=== PATIENT | male | born 1940 | race Caucasian/White ===

== ENCOUNTER 2019-05-07 06:49 | Inpatient (IN) | payer OTHER ==
[2019-05-07 07:21] LABS: #Monocytes 0.4 thou/uL (0.11-0.59); #Neutrophils 6.6 thou/uL (1.40-6.50); %Eosinophils 0.4 % (0.0-10.0); %Lymphocytes 12.8 % (21.0-51.0); %Neutrophils 81.9 % (42.0-75.0); Hemoglobin 8.3 g/dL (14.0-18.0); Mean Corpuscular HGB CONC 30.9 g/dL (32.0-36.0); Mean Corpuscular Hemoglobin 27.5 pg (27.0-31.0); Mean Platelet Volume 9.3 fL (7.4-10.4); Platelet Count 165 thou/uL (130-400); RBC Distribution Width 18.9 % (11.5-14.5); Red Blood Cell (RBC) Count 3.04 mill/uL (4.70-6.10); White Blood Cell (WBC) Count 8.1 thou/uL (4.8-10.8)
[2019-05-07 07:45] LABS: ALT (SGPT) 9 U/L (8-55); AST (SGOT) 15 U/L (5-34); Albumin 2.8 g/dL (3.4-4.8); Alkaline Phosphatase 104 U/L (40-150); Anion Gap 11 mmol/L (10-20); BUN (Urea Nitrogen) 18 mg/dL (8.4-25.7); Bilirubin, Total 1.7 mg/dL (0.2-1.2); Calc. Creatinine Clearance 0 mL/min (70-130); Calcium 8.9 mg/dL (7.8-10.44); Carbon Dioxide 22 mmol/L (23-31); Chloride 107 mmol/L (98-107); Estimated GFR-MDRD 59; Globulin 4.5 g/dL (2.4-3.5); Glucose 112 mg/dL (83-110); Potassium 3.3 mmol/L (3.5-5.1); Protein, Total 7.3 g/dL (5.8-8.1); Sodium 137 mmol/L (136-145)
[2019-05-07 08:07] LABS: CKMB 0.8 ng/mL (0-6.6)
--- NOTE | 2019-05-07 08:20 | RAD ---
EXAM: Single view of the chest HISTORY: Chest pain COMPARISON: None FINDINGS: Single view of the chest shows an enlarged cardiomediastinal silhouette. A pacemaker is se en with its tip in the right ventricle. There is no evidence of consolidation, mass, or pleural effusion. The bones are unremarkable. IMPRESSION: Cardiomegaly
--- NOTE | 2019-05-07 09:51 | CT ---
EXAM: CTA of the chest and abdomen HISTORY: Chest pain and back pain; shortness of breath COMPARISON: None TECHNIQUE: Multiple contiguous axial images were obtained a CTA of the chest and abdomen with contras t per aortic dissection protocol. Sagittal and coronal 3-D MIP reformats were performed. FINDINGS: HEART: Global cardiomegaly. A pacemaker is seen with its tip in the right ventricle. A small pericard ial effusion is seen. Calcification are seen in the coronary arteries. PULMONARY ARTERIES: Normal in caliber without filling defects to suggest pulmonary emboli. MEDIASTINUM: There are prominent mediastinal lymph nodes measuring up to 1.4 cm in short axis. LUNGS: No focal infiltrates or masses. PLEURAL SPACE: Small bilateral pleural effusions with adjacent atelectasis CHEST AND ABDOMINAL WALL SOFT TISSUES: Diffuse soft tissue anasarca. LIVER: Slightly nodular appearance concerning for cirrhosis.. GALLBLADDER: Absent. KIDNEYS: Small and atrophic. Subcentimeter hypodensities likely represent cysts. There are nonobstruc ting calcifications in both kidneys measuring up to 1.2 cm in size. SPLEEN: There is a 6.3 cm cystic lesion involving the anterior aspect of the spleen. The spleen measu res 14.0 cm in length. PANCREAS: Unremarkable. BOWEL: Unremarkable. RETROPERITONEUM: No lymphadenopathy BONES: Degenerative changes in the spine. Remodeling of the left iliac crest may represent a remote h ealed fracture. ASCENDING THORACIC AORTA:Normal caliber without evidence of dissection or aneurysmal dilatation. DESCENDING THORACIC AORTA:Normal caliber without evidence of dissection or aneurysmal dilatation. ABDOMINAL AORTA: Normal caliber without evidence of dissection or aneurysmal dilatation. Atherosclero tic calcifications are seen more prominently in the infrarenal aorta. CELIAC TRUNK: Patent SMA: Patent ROBBY: Patent RENAL ARTERIES: Single renal artery on the left and 2 renal arteries on the right without significant atherosclerotic disease. IMPRESSION: 1. No evidence of thoracic or abdominal aortic aneurysm or dissection 2. Likely cirrhosis with splenomegaly 3. Nonobstructing bilateral renal calculi 4. Nonspecific cystic lesion in the anterior aspect of the spleen. This may represent residual sequel ae from trauma. 5. Bilateral renal cysts 6. Bilateral pleural effusions 7. Small pericardial effusion
[2019-05-07 10:59] LABS: Troponin I 0.042 ng/mL (< 0.028)
[2019-05-07] MEDS ORDERED: Prevnar 13-Val Conj/PF 0.5 ML SYRINGE IM ONE (13:15)
[2019-05-07 14:24] LABS: Troponin I 0.033 ng/mL (< 0.028)
[2019-05-07] MEDS ORDERED: Senokot S 8.6-50 MG TAB PO PRN (14:37)
[2019-05-07] MEDS ORDERED: Bisacodyl 10 MG SUPP PR PRN (14:37)
[2019-05-07] MEDS ORDERED: Guaifenesin DM 100-10/5 ML UDCUP PO PRN (14:37)
[2019-05-07] MEDS ORDERED: Acetaminophen 325 MG TAB PO PRN (14:37)
[2019-05-07] MEDS ORDERED: Heparin 1,000 UNITS/ML VIAL ONE (15:00)
[2019-05-07 16:23] LABS: INR-International Normal Ratio 1.4; PTT 38.6 SEC (22.9-36.1); Prothrombin Time 17.1 SEC (12.0-14.7)
[2019-05-07 16:25] LABS: Hep C IgG Ab Non-Reactive (NonReactive); Hep C Index 0.13 S/CO (0-0.79)
[2019-05-07 16:27] LABS: HBCM Index 0.12 S/CO (0-0.79); Hepatitis B Core IgM Abs Non-Reactive (NonReactive)
[2019-05-07 16:28] LABS: HBSAg Index 0.33 S/CO (0-0.99); Hep A IgM AB Non-Reactive (NonReactive); Hep A IgM S/CO 0.19 S/CO (0-0.79); Hep B Surf Ag Non-Reactive S/CO (NonReactive)
--- NOTE | 2019-05-07 16:35 | HP ---
REASON FOR ADMISSION: Chest pain, CHF exacerbation, and hypokalemia. HISTORY OF PRESENTING ILLNESS: The patient gives history of shortness of breath from last 2 to 3 days now. He has been getting exhausted walking 100 feet. He thinks that he might have vascular issues in his lower extremities. The patient says he has to rest for a few minutes before he starts ambulating. He also developed chest pain this morning, which lasted for 15 minutes and got resolved by itself. He was taken to the [facility] in the [facility] unit and later transferred here. The patient also received sublingual nitroglycerin. He states he has chronic cough with yanet-colored sputum, which is not something new. No complaints of fever. No complaints of palpitations or PND. PAST MEDICAL AND SURGICAL HISTORY: History of paroxysmal atrial fibrillation and the patient has chosen not to take anticoagulation, hypertension, chronic venous insufficiency per fpc records. No prior history of heart failure. Cataract surgery, pacemaker placed in 2014. He has had a stress test done sometime in 2014, which was negative as far as he knows. Heavy use of alcohol for nearly 50 years with likely history of cirrhosis. CURRENT MEDICATIONS: The patient takes: 1. Aspirin 81 mg p.o. daily. 2. Atorvastatin 80 mg p.o. at bedtime. 3. Ferrous sulfate 325 mg p.o. daily. 4. Finasteride 5 mg p.o. daily. 5. Lactulose 30 g p.o. twice daily. 6. Omeprazole 20 mg daily. ALLERGIES: 1. BENZODIAZEPINES. 2. ONIONS. 3. PENICILLIN. PERSONAL HISTORY: The patient states he was drinking heavy alcohol from 13 years of age, and he used to drink nearly 1 pint of tequila for almost 50 years on a daily basis. He has been in the fpc system for the last 8-1/2 years. Does not abuse drugs or smoke. FAMILY HISTORY: The patient has 3 children, and they are not in talking terms. CODE STATUS: Full. Power of attorney general is his stepdaughter, Ms. Tiesha Nelson. REVIEW OF SYSTEMS: CONSTITUTIONAL: Negative for weight loss or gain, ability to conduct usual activities. SKIN: Negative for rash, itching. EYES: Negative for double vision, pain. ENT/MOUTH: Negative for nose bleeding, neck stiffness, pain, tenderness. CARDIOVASCULAR: Negative for palpitations, dyspnea on exertion, orthopnea. RESPIRATORY: Negative for shortness of breath, wheezing, cough, hemoptysis, fever or night sweats. GASTROINTESTINAL: Negative for poor appetite, abdominal pain, heartburn, nausea , vomiting, constipation, or diarrhea. GENITOURINARY: Negative for urgency, frequency, dysuria, nocturia. MUSCULOSKELETAL: Negative for pain, swelling. NEUROLOGIC/PSYCHIATRIC: Negative for anxiety, depression. ALLERGY/IMMUNOLOGIC: Negative for skin rash, bleeding tendency. PHYSICAL EXAMINATION: GENERAL: The patient is an 78-year-old male, who is currently not in any acute distress. VITAL SIGNS: Blood pressure 130/66, pulse 86 per minute, respiratory rate 18 per minute, temperature 98 degrees Fahrenheit, saturating 97% on room air. NECK: Supple. No elevated JVD. HEENT: Eyes; extraocular muscles are intact. Pupils are reacting to light. Oral cavity; mucous membranes are moist. No exudates or congestion. CARDIOVASCULAR: S1 and S2 heard. Regular rhythm. RESPIRATORY: Air entry 1+ bilateral. There are basal rales plus. ABDOMEN: Soft. Bowel sounds heard. No tenderness, rigidity, or guarding. EXTREMITIES: There is peripheral edema, 1+ bilateral. No calf tenderness. VASCULAR: Peripheral pulses 1+ bilateral. No ischemic ulcerations or gangrene. CENTRAL NERVOUS SYSTEM: No gross focal deficits noted. The patient is alert, awake, and oriented well. PSYCHIATRIC: The patient's mood is euthymic. No hallucinations or delusions. LABORATORY DATA: EKG done shows ventricular paced rhythm at 68 beats per minute , corrected QT is 572 milliseconds, QRS is [address] dissection protocol done shows no evidence of thoracic or abdominal aortic dissection or aneurysm seen. Findings of nodular liver with likely cirrhosis and splenomegaly with prior history of alcohol abuse. Nonobstructing bilateral renal calculi. Troponin I is indeterminate peaking up to 0.05, CK-MB 0.8. BNP 962. Albumin is 2.8, BUN 18, creatinine 1.1, serum glucose 112, total bilirubin 1.7, potassium 3.3, serum bicarb 22. D-dimer was 5.14. White count of 8, H and H 8 and 27, platelet count 165 with 81% neutrophils, MCV is 89. CLINICAL IMPRESSION AND PLAN: The patient will be under observation on telemetry for acute congestive heart failure exacerbation with volume overload. He also has [id number] myocardial infarction. He will be placed on Lasix 40 mg IV q.12 hourly. We will also continue his lactulose, small dose of lisinopril, and Coreg at 3.125 mg twice daily. Echo with 2D Doppler for LV function will be obtained. Stat PT/INR is still pending. He will be on aspirin, Lipitor, lactulose at home dose , and Proscar. A hepatitis panel will also be requested. If the patient were to become symptomatic with his chest pain, a stress test will be obtained, but until such time, he will be gently diuresed. If his shortness of breath resolves and he can ambulate well in the morning, the patient can be discharged back to fpc unit. If not, he will be switched over to inpatient status for further diuresis based on clinical findings in the morning. Job ID: [id number] MTDD
[2019-05-07] MEDS ORDERED: ISOVUE-370 76%-LOCM 1 ML ONE (17:11)
[2019-05-07] MEDS: Atorvastatin Calcium 40 MG TAB PO SCH (20:35)
[2019-05-07] MEDS: Famotidine 20 MG TAB PO SCH (20:35)
[2019-05-07] MEDS: Carvedilol 3.125 MG TAB PO SCH (20:35)
[2019-05-07] MEDS ORDERED: Gabapentin 300 MG CAP PO SCH (23:00)
[2019-05-08 05:52] LABS: Anion Gap 10 mmol/L (10-20); BUN (Urea Nitrogen) 19 mg/dL (8.4-25.7); Calc. Creatinine Clearance 68 mL/min (70-130); Calcium 8.3 mg/dL (7.8-10.44); Carbon Dioxide 21 mmol/L (23-31); Chloride 107 mmol/L (98-107); Estimated GFR-MDRD 73; Glucose 96 mg/dL (83-110); Potassium 3.2 mmol/L (3.5-5.1); Sodium 135 mmol/L (136-145)
[2019-05-08 05:59] LABS: #Eosinphils 0.1 thou/uL (0.0-0.7); #Monocytes 0.5 thou/uL (0.11-0.59); #Neutrophils 6.1 thou/uL (1.40-6.50); %Basophils 0.2 % (0.0-1.0); %Eosinophils 1.3 % (0.0-10.0); %Lymphocytes 13.2 % (21.0-51.0); %Monocytes 5.8 % (0.0-10.0); %Neutrophils 79.5 % (42.0-75.0); Band 9 % (5-11); Hemoglobin 7.5 g/dL (14.0-18.0); Hypochromia SLIGHT = 6-15 cells (100X) (0-5/hpf); Lymphocytes 11 % (21-51); MDiff Complete? YES; Macrocytosis SLIGHT = 6-15 cells (100X) (0-5/hpf); Mean Corpuscular Hemoglobin 28.4 pg (27.0-31.0); Mean Corpuscular Volume 88.7 fL (78.0-98.0); Mean Platelet Volume 9.3 fL (7.4-10.4); Monocytes 3 % (0-10); Neutrophil 77 % (42-75); Platelet Count 171 thou/uL (130-400); Platelet Morphology Comment Appears Adequate; RBC Distribution Width 19.2 % (11.5-14.5); Red Blood Cell (RBC) Count 2.63 mill/uL (4.70-6.10); White Blood Cell (WBC) Count 7.7 thou/uL (4.8-10.8)
[2019-05-08] MEDS: Furosemide 40 MG/4 ML VIAL SLOW IVP SCH ×2 (06:41→13:50)
[2019-05-08] MEDS: Potassium Chloride 20 MEQ TAB PO SCH ×2 (06:44→12:03)
[2019-05-08] MEDS: Gabapentin 300 MG CAP PO SCH ×2 (09:42→20:07)
[2019-05-08] MEDS: Lisinopril 2.5 MG TAB PO SCH (09:42)
[2019-05-08] MEDS: Finasteride 5 MG TAB PO SCH (09:42)
[2019-05-08] MEDS: Famotidine 20 MG TAB PO SCH ×2 (09:42→20:06)
[2019-05-08] MEDS: Carvedilol 3.125 MG TAB PO SCH ×2 (09:43→20:07)
[2019-05-08] MEDS: Enoxaparin Sodium 40 MG/0.4 ML SYRINGE SC SCH (09:43)
[2019-05-08] MEDS: Aspirin Chewable 81 MG TAB PO SCH (09:43)
--- NOTE | 2019-05-08 10:53 | PDOC.PN ---
- Subjective Encounter Start Date: 05/08/19 Encounter Start Time: 10:00 Subjective: feels better, no sob or palp -: has off and on chest dyscomfort which he cant describe well - Objective Resuscitation Status - Order Detail: 05/07/19 14:32 Resuscitation Status Routine Resuscitation Status: FULL: Full Resuscitation MAR Reviewed: Yes Vital Signs & Weight: Vital Signs (12 hours) Temp Pulse Resp BP BP BP Pulse Ox 05/08/19 09:42 63 110/56 L 05/08/19 07:27 98.1 F 63 12 110/56 L 96 05/08/19 05:00 97.5 F L 71 17 131/63 95 05/07/19 23:43 98.9 F 69 16 142/62 H 96 Weight Weight 179 lb I&O: 05/07/19 05/08/19 05/09/19 06:59 06:59 06:59 Intake Total 1440 240 Output Total 675 Balance 765 240 Result Diagrams: 05/08/19 04:53 05/08/19 04:53 Phys Exam - Physical Examination HEENT: PERRLA, moist MMs Neck: no JVD, supple Respiratory: no wheezing rales+ Cardiovascular: RRR, no significant murmur Gastrointestinal: soft, non-tender, positive bowel sounds Musculoskeletal: pulses present, edema present Neurological: non-focal, moves all 4 limbs Psychiatric: A&O x 3 Dx/Plan (1) Acute exacerbation of CHF (congestive heart failure) Code(s): I50.9 - HEART FAILURE, UNSPECIFIED Status: Acute (2) Cirrhosis of liver Code(s): K74.60 - UNSPECIFIED CIRRHOSIS OF LIVER Status: Chronic Qualifiers: Hepatic cirrhosis type: alcoholic cirrhosis Ascites presence: without ascites Qualified Code(s): K70.30 - Alcoholic cirrhosis of liver without ascites (3) Anasarca Code(s): R60.1 - GENERALIZED EDEMA Status: Acute (4) HTN (hypertension) Code(s): I10 - ESSENTIAL (PRIMARY) HYPERTENSION Status: Chronic Qualifiers: Hypertension type: essential hypertension Qualified Code(s): I10 - Essential (primary) hypertension (5) Dyslipidemia Code(s): E78.5 - HYPERLIPIDEMIA, UNSPECIFIED Status: Chronic (6) Afib Code(s): I48.91 - UNSPECIFIED ATRIAL FIBRILLATION Status: Chronic Qualifiers: Atrial fibrillation type: paroxysmal Qualified Code(s): I48.0 - Paroxysmal atrial fibrillation Comment: in sinus rhythm, does not want anticoagulation (7) Pacemaker Code(s): Z95.0 - PRESENCE OF CARDIAC PACEMAKER Status: Chronic (8) Chronic anemia Code(s): D64.9 - ANEMIA, UNSPECIFIED Status: Chronic (9) Chest pain Code(s): R07.9 - CHEST PAIN, UNSPECIFIED Status: Acute Qualifiers: Chest pain type: unspecified Qualified Code(s): R07.9 - Chest pain, unspecified - Plan gentle diuresis -: await echo results -: is on coreg, lisinopril, asp, lipitor, proscar -: was initiated on gabapentin last night for possible neuropathy -: to wear mariana hose, switch to inpatient status * . Review of Systems - Medications/Allergies Allergies/Adverse Reactions: Allergies Allergy/AdvReac Type Severity Reaction Status Date / Time Benzodiazepines Allergy Verified 05/07/19 13:19 Medications: Current Medications Acetaminophen (Tylenol) 650 mg PO Q4H PRN PRN Reason: Headache/Fever/Mild Pain (1-3) Last Admin: 05/07/19 20:35 Dose: 650 mg Aspirin (Aspirin Chewable) 81 mg PO DAILY [facility] Last Admin: 05/08/19 09:43 Dose: 81 mg Atorvastatin Calcium (Lipitor) 80 mg PO HS [facility] Last Admin: 05/07/19 20:35 Dose: 80 mg Bisacodyl (Dulcolax) 10 mg OR DAILYPRN PRN PRN Reason: Constipation Carvedilol (Coreg) 3.125 mg PO BID [facility] Last Admin: 05/08/19 09:43 Dose: 3.125 mg Enoxaparin Sodium (Lovenox) 40 mg SC 0900 [facility] Last Admin: 05/08/19 09:43 Dose: 40 mg Famotidine (Pepcid) 20 mg PO BID [facility] Last Admin: 05/08/19 09:42 Dose: 20 mg Finasteride (Proscar) 5 mg PO DAILY [facility] Last Admin: 05/08/19 09:42 Dose: 5 mg Furosemide (Lasix) 40 mg SLOW IVP 0600,1400 [facility] Last Admin: 05/08/19 06:41 Dose: 40 mg Gabapentin (Neurontin) 300 mg PO BID [facility] Last Admin: 05/08/19 09:42 Dose: 300 mg Guaifenesin/Dextromethorphan (Robitussin Dm) 15 ml PO Q4H PRN PRN Reason: Cough Lactulose (Lactulose) 30 gm PO BID [facility] Last Admin: 05/08/19 09:42 Dose: Not Given Lisinopril (Zestril) 2.5 mg PO DAILY [facility] Last Admin: 05/08/19 09:42 Dose: 2.5 mg Potassium Chloride (K-Dur) 40 meq PO 0700,1200 [facility] Stop: 05/08/19 13:00 Last Admin: 05/08/19 06:44 Dose: 40 meq Senna/Docusate Sodium (Senokot S) 2 tab PO BID PRN PRN Reason: Constipation
[2019-05-08 15:29] LABS: Hemoglobin 7.9 g/dL (14.0-18.0)
[2019-05-08] MEDS: Atorvastatin Calcium 40 MG TAB PO SCH (20:07)
[2019-05-09] MEDS: Furosemide 40 MG/4 ML VIAL SLOW IVP SCH ×2 (06:09→14:26)
[2019-05-09] MEDS: Finasteride 5 MG TAB PO SCH (08:46)
[2019-05-09] MEDS: Lisinopril 2.5 MG TAB PO SCH (08:46)
[2019-05-09] MEDS: Famotidine 20 MG TAB PO SCH ×2 (08:46→20:16)
[2019-05-09] MEDS: Aspirin Chewable 81 MG TAB PO SCH (08:47)
[2019-05-09] MEDS: Gabapentin 300 MG CAP PO SCH ×2 (08:47→20:16)
[2019-05-09] MEDS: Carvedilol 3.125 MG TAB PO SCH ×2 (08:47→20:16)
[2019-05-09] MEDS: Enoxaparin Sodium 40 MG/0.4 ML SYRINGE SC SCH (08:48)
--- NOTE | 2019-05-09 14:37 | PDOC.PN ---
- Subjective Encounter Start Date: 05/09/19 Encounter Start Time: 07:40 Pt seen for followup re: CHF exacerbation. Says he feels better. - Objective Resuscitation Status - Order Detail: 05/07/19 14:32 Resuscitation Status Routine Resuscitation Status: FULL: Full Resuscitation MAR Reviewed: Yes Vital Signs & Weight: Vital Signs (12 hours) Temp Pulse Resp BP Pulse Ox 05/09/19 11:00 98.1 F 75 18 96/53 L 97 05/09/19 08:46 65 05/09/19 08:00 92 L 05/09/19 07:00 97.6 F 65 18 112/73 93 L 05/09/19 03:36 98.0 F 62 19 105/62 95 Weight Admit Weight 181 lb 8 oz Weight 167 lb 14.4 oz I&O: 05/08/19 05/09/19 05/10/19 06:59 06:59 06:59 Intake Total 1440 780 540 Output Total 675 Balance 765 780 540 Result Diagrams: 05/08/19 15:14 05/08/19 04:53 EKG Reviewed by me: Yes (Tele: V-paced) Phys Exam - Physical Examination Constitutional: NAD HEENT: moist MMs Neck: supple Respiratory: clear to auscultation bilateral Cardiovascular: RRR Gastrointestinal: soft Neurological: moves all 4 limbs Psychiatric: normal affect Dx/Plan (1) Acute on chronic diastolic CHF (congestive heart failure), NYHA class 3 Code(s): I50.33 - ACUTE ON CHRONIC DIASTOLIC (CONGESTIVE) HEART FAILURE Status : Acute Comment: continue furosemide, improving (2) Vegetation of heart valve Code(s): I33.0 - ACUTE AND SUBACUTE INFECTIVE ENDOCARDITIS Status: Acute Comment: send blood cultures, consult cardiology for opinion and help with management. Pt is afebrile. (3) Afib Code(s): I48.91 - UNSPECIFIED ATRIAL FIBRILLATION Status: Chronic Qualifiers: Atrial fibrillation type: paroxysmal Qualified Code(s): I48.0 - Paroxysmal atrial fibrillation Comment: s/p PPM, does not want anticoagulation (4) Cirrhosis of liver Code(s): K74.60 - UNSPECIFIED CIRRHOSIS OF LIVER Status: Chronic Qualifiers: Hepatic cirrhosis type: alcoholic cirrhosis Ascites presence: without ascites Qualified Code(s): K70.30 - Alcoholic cirrhosis of liver without ascites Comment: stable (5) Dyslipidemia Code(s): E78.5 - HYPERLIPIDEMIA, UNSPECIFIED Status: Chronic Comment: continue Lipitor 80 mg (6) HTN (hypertension) Code(s): I10 - ESSENTIAL (PRIMARY) HYPERTENSION Status: Chronic Qualifiers: Hypertension type: essential hypertension Qualified Code(s): I10 - Essential (primary) hypertension Comment: controlled - Plan * . Review of Systems - Review of Systems Cardiovascular: negative: chest pain, palpitations, orthopnea, paroxysmal nocturnal dyspnea, edema, light headedness Gastrointestinal: negative: Nausea, Vomiting, Abdominal Pain, Diarrhea, Constipation, Melena, Hematochezia - Medications/Allergies Allergies/Adverse Reactions: Allergies Allergy/AdvReac Type Severity Reaction Status Date / Time Benzodiazepines Allergy Verified 05/07/19 13:19 Medications: Current Medications Acetaminophen (Tylenol) 650 mg PO Q4H PRN PRN Reason: Headache/Fever/Mild Pain (1-3) Last Admin: 05/07/19 20:35 Dose: 650 mg Aspirin (Aspirin Chewable) 81 mg PO DAILY [facility] Last Admin: 05/09/19 08:47 Dose: 81 mg Atorvastatin Calcium (Lipitor) 80 mg PO HS [facility] Last Admin: 05/08/19 20:07 Dose: 80 mg Bisacodyl (Dulcolax) 10 mg IN DAILYPRN PRN PRN Reason: Constipation Carvedilol (Coreg) 3.125 mg PO BID [facility] Last Admin: 05/09/19 08:47 Dose: 3.125 mg Enoxaparin Sodium (Lovenox) 40 mg SC 0900 [facility] Last Admin: 05/09/19 08:48 Dose: Not Given Famotidine (Pepcid) 20 mg PO BID [facility] Last Admin: 05/09/19 08:46 Dose: 20 mg Finasteride (Proscar) 5 mg PO DAILY [facility] Last Admin: 05/09/19 08:46 Dose: 5 mg Furosemide (Lasix) 40 mg SLOW IVP 0600,1400 [facility] Last Admin: 05/09/19 14:26 Dose: 40 mg Gabapentin (Neurontin) 300 mg PO BID [facility] Last Admin: 05/09/19 08:47 Dose: 300 mg Guaifenesin/Dextromethorphan (Robitussin Dm) 15 ml PO Q4H PRN PRN Reason: Cough Lactulose (Lactulose) 30 gm PO BID [facility] Last Admin: 05/09/19 08:46 Dose: Not Given Lisinopril (Zestril) 2.5 mg PO DAILY [facility] Last Admin: 05/09/19 08:46 Dose: 2.5 mg Senna/Docusate Sodium (Senokot S) 2 tab PO BID PRN PRN Reason: Constipation
--- NOTE | 2019-05-09 16:32 | CON ---
DATE OF CONSULTATION: HISTORY OF PRESENT ILLNESS: The patient is an 78-year-old gentleman with a history of atrial fibrillation and pacemaker, who presented with chest discomfort. The patient has a history of chronic atrial fibrillation. He has declined chronic anticoagulation therapy. He also has had placement of electronic pacemaker. The patient has declined to have followup in [place]. He presented to the emergency room with dyspnea. He also reported having pain along the site of his pacemaker. He states it was seemed to be worse when he took a deep breath. The patient denies having any chest discomfort. PAST MEDICAL HISTORY: 1. Atrial fibrillation. 2. Hypertension. 3. Cirrhosis. 4. Dyslipidemia. PAST SURGICAL HISTORY: Cataract surgery. SOCIAL HISTORY: Nonsmoker. MEDICATIONS: See nursing list. ALLERGIES: PENICILLIN AND BENZODIAZEPINE. SOCIAL HISTORY: Long history of alcohol abuse. REVIEW OF SYSTEMS: Ten-point system otherwise unremarkable. PHYSICAL EXAMINATION: GENERAL: Well-developed gentleman in no acute distress. VITAL SIGNS: Blood pressure 112/73. NECK: No jugular venous distention. LUNGS: Clear to auscultation. HEART: Regular rate and rhythm. Normal S1, S2. 2/6 systolic murmur and 2/ 6diastolic murmur. ABDOMEN: Nondistended. EXTREMITIES: Showed mild peripheral edema. VASCULAR: Radial pulses, 2+. LABORATORY DATA: Sodium 135, potassium 3.2, chloride 107, bicarbonate 21, BUN 19, and creatinine 0.99. Troponin was 0.033. White blood cell count 7.7, hemoglobin 7.5, hematocrit 23.3, and platelets were 171. His INR was 1.4. His BNP was 96 due to troponin of 0.03. His EKG revealed ventricular paced rhythm. His echocardiogram revealed him to have normal left ventricular ejection fraction of 55% to 60% with a possible vegetation noted on the aortic valve with pulmonary hypertension. IMPRESSION: 1. Atypical chest pain. 2. History of atrial fibrillation. 3. Cirrhosis. 4. Pulmonary hypertension. 5. History of pacemaker placement. 6. Possible vegetation. PLAN: This gentleman presents with atypical chest pain, suggestive of musculoskeletal discomfort. He was found to have abnormality on his echocardiogram. We will proceed with [facility]I to further evaluate. We will follow this patient with you through his hospitalization. Job ID: [id number] [facility]
[2019-05-09] MEDS: Atorvastatin Calcium 40 MG TAB PO SCH (20:16)
[2019-05-10] MEDS: Furosemide 40 MG/4 ML VIAL SLOW IVP SCH ×2 (05:41→14:03)
[2019-05-10] MEDS ORDERED: PROPOFOL 20 ML ONE (07:59)
[2019-05-10] MEDS: Famotidine 20 MG TAB PO SCH ×2 (09:37→20:28)
[2019-05-10] MEDS: Gabapentin 300 MG CAP PO SCH ×2 (09:37→20:28)
[2019-05-10] MEDS: Finasteride 5 MG TAB PO SCH (09:39)
[2019-05-10] MEDS: Lisinopril 2.5 MG TAB PO SCH (09:40)
[2019-05-10] MEDS: Aspirin Chewable 81 MG TAB PO SCH (09:41)
[2019-05-10] MEDS: Enoxaparin Sodium 40 MG/0.4 ML SYRINGE SC SCH (09:41)
[2019-05-10] MEDS: Carvedilol 3.125 MG TAB PO SCH ×2 (09:41→20:29)
[2019-05-10 12:06] LABS: #Basophils 0.2 thou/uL (0.0-0.2); #Eosinphils 0.1 thou/uL (0.0-0.7); #Lymphocytes 1.3 thou/uL (1.20-3.40); #Monocytes 0.6 thou/uL (0.11-0.59); #Neutrophils 7.2 thou/uL (1.40-6.50); %Basophils 1.8 % (0.0-1.0); %Eosinophils 1.1 % (0.0-10.0); %Lymphocytes 14.1 % (21.0-51.0); %Monocytes 6.7 % (0.0-10.0); %Neutrophils 76.4 % (42.0-75.0); Hemoglobin 8.3 g/dL (14.0-18.0); Mean Corpuscular HGB CONC 30.4 g/dL (32.0-36.0); Mean Corpuscular Hemoglobin 27.6 pg (27.0-31.0); Mean Corpuscular Volume 90.8 fL (78.0-98.0); Mean Platelet Volume 9.2 fL (7.4-10.4); Platelet Count 187 thou/uL (130-400); RBC Distribution Width 20.2 % (11.5-14.5); Red Blood Cell (RBC) Count 3.01 mill/uL (4.70-6.10); White Blood Cell (WBC) Count 9.4 thou/uL (4.8-10.8)
--- NOTE | 2019-05-10 12:13 | OP ---
DATE OF PROCEDURE: 05/10/2019 PROCEDURE PERFORMED: Transesophageal echo. INDICATIONS FOR PROCEDURE: An 78-year-old gentleman with possible endocarditis. The patient was taken to the PACU. The patient was sedated by Anesthesiology. A transesophageal probe was placed into the distal esophagus and stomach, echocardiograms were obtained. FINDINGS: 1. Normal left ventricular systolic function. 2. Biatrial enlargement. 3. The aortic valve leaflets are thickened with a 0.5 cm mass noted attached to the aortic leaflet suggestive of vegetation. 4. Severe aortic regurgitation. 5. Mild mitral regurgitation. 6. Pacemaker wires noted in the right ventricle. 7. Spontaneous contrast noted in the left atrial and right atrial appendage. 8. Atherosclerotic debris in the descending aorta. IMPRESSION: Echogenic mass noted attached to the aortic valve leaflets suggestive of vegetation with severe aortic regurgitation. Job ID: [id number]
[2019-05-10 12:27] LABS: Anion Gap 11 mmol/L (10-20); BUN (Urea Nitrogen) 30 mg/dL (8.4-25.7); Calc. Creatinine Clearance 51 mL/min (70-130); Calcium 8.8 mg/dL (7.8-10.44); Carbon Dioxide 23 mmol/L (23-31); Chloride 103 mmol/L (98-107); Estimated GFR-MDRD 56; Glucose 101 mg/dL (83-110); Potassium 3.9 mmol/L (3.5-5.1); Sodium 133 mmol/L (136-145)
[2019-05-10] MEDS ORDERED: Vancomycin HCl 1.5 GM in Sodium Chloride 0.9% 250 ML 300 ML IVPB SCH (13:45)
[2019-05-10] MEDS ORDERED: Piperacillin/Tazobactam 4.5 GM in Sodium Chloride 0.9% 100 ML IVPB SCH (14:00)
[2019-05-10] MEDS ORDERED: PROPOFOL 200 MG/20 ML VIAL ONE (14:26)
--- NOTE | 2019-05-10 15:49 | PDOC.PN ---
- Subjective Encounter Start Date: 05/10/19 Encounter Start Time: 15:48 Pt seen for followup re: infective endocarditis. denies chest pain, shortness of breath is better. No nausea or vomiting. No fevers or chills. - Objective Resuscitation Status - Order Detail: 05/07/19 14:32 Resuscitation Status Routine Resuscitation Status: FULL: Full Resuscitation MAR Reviewed: Yes Vital Signs & Weight: Vital Signs (12 hours) Temp Pulse Pulse Pulse Resp BP BP 05/10/19 12:00 98.4 F 81 16 05/10/19 10:58 81 60 99/55 L 05/10/19 09:40 77 99/51 L 05/10/19 08:00 98.4 F 77 18 05/10/19 04:00 97.9 F 80 20 BP BP Pulse Ox 05/10/19 12:00 91/53 L 93 L 05/10/19 10:58 104/53 L 05/10/19 09:40 05/10/19 08:00 99/51 L 95 05/10/19 04:00 94/53 L 92 L Weight Admit Weight 181 lb 8 oz Weight 167 lb I&O: 05/09/19 05/10/19 05/11/19 06:59 06:59 06:59 Intake Total 780 1400 440 Output Total 600 Balance 780 800 440 Result Diagrams: 05/10/19 11:50 05/10/19 11:50 EKG Reviewed by me: Yes (Tele: V-paced) Phys Exam - Physical Examination Constitutional: NAD HEENT: moist MMs Neck: supple Respiratory: clear to auscultation bilateral Cardiovascular: RRR Gastrointestinal: soft Neurological: moves all 4 limbs Psychiatric: normal affect Dx/Plan (1) Infective endocarditis Code(s): I33.0 - ACUTE AND SUBACUTE INFECTIVE ENDOCARDITIS Status: Acute Qualifiers: Infective endocarditis organism: bacterial Comment: Blood cultures growing enterococcus fecalis and gram positive cocci, start IV vancomycin and Zosyn, await cultures. (2) Acute on chronic diastolic CHF (congestive heart failure), NYHA class 3 Code(s): I50.33 - ACUTE ON CHRONIC DIASTOLIC (CONGESTIVE) HEART FAILURE Status : Acute Comment: improving, continue furosemide (3) Afib Code(s): I48.91 - UNSPECIFIED ATRIAL FIBRILLATION Status: Chronic Qualifiers: Atrial fibrillation type: paroxysmal Qualified Code(s): I48.0 - Paroxysmal atrial fibrillation Comment: Pt has pacemaker. Continue Coreg 3.125 mg PO BID. (4) Cirrhosis of liver Code(s): K74.60 - UNSPECIFIED CIRRHOSIS OF LIVER Status: Chronic Qualifiers: Hepatic cirrhosis type: alcoholic cirrhosis Ascites presence: without ascites Qualified Code(s): K70.30 - Alcoholic cirrhosis of liver without ascites Comment: stable (5) Dyslipidemia Code(s): E78.5 - HYPERLIPIDEMIA, UNSPECIFIED Status: Chronic Comment: on Lipitor 80 mg (6) HTN (hypertension) Code(s): I10 - ESSENTIAL (PRIMARY) HYPERTENSION Status: Chronic Qualifiers: Hypertension type: essential hypertension Qualified Code(s): I10 - Essential (primary) hypertension Comment: controlled - Plan * . Review of Systems - Review of Systems Respiratory: SOB with Excertion. negative: Cough, Shortness of Breath, Pleuritic Pain, Wheezing Cardiovascular: negative: chest pain, palpitations, orthopnea, paroxysmal nocturnal dyspnea, edema, light headedness - Medications/Allergies Allergies/Adverse Reactions: Allergies Allergy/AdvReac Type Severity Reaction Status Date / Time Benzodiazepines Allergy Verified 05/07/19 13:19 Medications: Current Medications Acetaminophen (Tylenol) 650 mg PO Q4H PRN PRN Reason: Headache/Fever/Mild Pain (1-3) Last Admin: 05/07/19 20:35 Dose: 650 mg Aspirin (Aspirin Chewable) 81 mg PO DAILY [facility] Last Admin: 05/10/19 09:41 Dose: 81 mg Atorvastatin Calcium (Lipitor) 80 mg PO HS [facility] Last Admin: 05/09/19 20:16 Dose: 80 mg Bisacodyl (Dulcolax) 10 mg [place] DAILYPRN PRN PRN Reason: Constipation Carvedilol (Coreg) 3.125 mg PO BID [facility] Last Admin: 05/10/19 09:41 Dose: Not Given Enoxaparin Sodium (Lovenox) 40 mg SC 0900 [facility] Last Admin: 05/10/19 09:41 Dose: Not Given Famotidine (Pepcid) 20 mg PO BID [facility] Last Admin: 05/10/19 09:37 Dose: 20 mg Finasteride (Proscar) 5 mg PO DAILY [facility] Last Admin: 05/10/19 09:39 Dose: Not Given Furosemide (Lasix) 40 mg SLOW IVP 0600,1400 [facility] Last Admin: 05/10/19 14:03 Dose: Not Given Gabapentin (Neurontin) 300 mg PO BID [facility] Last Admin: 05/10/19 09:37 Dose: 300 mg Guaifenesin/Dextromethorphan (Robitussin Dm) 15 ml PO Q4H PRN PRN Reason: Cough Vancomycin HCl 1 gm/ Device 200 mls @ 200 mls/hr IVPB 0300,1500 [facility] Piperacillin Sod/Tazobactam (Sod 4.5 gm/ Sodium Chloride) 100 mls @ 200 mls/hr IVPB Q8HR [facility] Last Admin: 05/10/19 14:01 Dose: 100 mls Vancomycin HCl 1.5 gm/ Sodium (Chloride) 300 mls @ 200 mls/hr IVPB 1345 [facility] Stop: 05/10/19 16:30 Last Admin: 05/10/19 15:00 Dose: 300 mls Lactulose (Lactulose) 30 gm PO BID [facility] Last Admin: 05/10/19 09:40 Dose: Not Given Lisinopril (Zestril) 2.5 mg PO DAILY [facility] Last Admin: 05/10/19 09:40 Dose: Not Given Miscellaneous Medication (Pharmacy To Dose) 1 each IVPB PRN PRN PRN Reason: Pharmacy to dose Senna/Docusate Sodium (Senokot S) 2 tab PO BID PRN PRN Reason: Constipation
[2019-05-10] MEDS: Atorvastatin Calcium 40 MG TAB PO SCH (20:28)
[2019-05-10] MEDS: Ampicillin 2 GM in Sodium Chloride 0.9% 100 ML IVPB SCH (20:29)
[2019-05-10] MEDS: Gentamicin Sulfate 80 MG in Premix Bag 1 BAG IVPB SCH (21:56)
[2019-05-10] MEDS ORDERED: Gentamicin 80 MG/2 ML VIAL IM SCH (22:00)
--- NOTE | 2019-05-11 00:26 | CON ---
DATE OF CONSULTATION: 05/10/2019 REASON FOR CONSULTATION: Endocarditis. HISTORY OF PRESENT ILLNESS: An 78-year-old with history of atrial fibrillation, heart failure, and looks like the patient has an AICD in place since 2014 and possible liver cirrhosis from alcoholism in the past, who is an inmate at a local [facility] unit and has developed progressively worsening dyspnea for the past few days. He also had some cough, but no reported fever. No neurological symptoms. No abdominal pain or diarrhea. No genitourinary symptoms. No joint symptoms. PAST MEDICAL HISTORY: Atrial fibrillation, hypertension, CHF, AICD placement, negative stress test, alcoholism. ALLERGIES: BENZODIAZEPINE, ONIONS, PENICILLIN. SOCIAL HISTORY: Inmate at [facility]. He used to drink a pint of Tequila daily for almost 50 years. FAMILY HISTORY: He is estranged from his family and again, he is incarcerated for the past 8 years and a half. PHYSICAL EXAMINATION: VITAL SIGNS: T-max has been normal throughout the hospital stay. BP 94/51, pulse 60, respirations 18, O2 saturation 99. SKIN: Not particularly remarkable. He has a peripheral IV access and is voiding in the urinal and diaper. GENERAL: He seems to sleep most of the day, but he is easily arousable. NECK: There is no lymphadenopathy. HEENT: Ocular movements conjugate. Oral cavity is somewhat dry. Teeth in bad shape with a lot of periodontitis and gum disease. Tongue papillae atrophy. NECK: Supple. No jugular venous distention or thyromegaly. LUNGS: Symmetric air entry. HEART: S1 and S2. Regular rate without obvious murmurs. ABDOMEN: Soft. Not distended or tender. No ascites. No bladder distention. EXTREMITIES: No joint inflammatory activity. Pulses 1+ in dorsalis pedis. NEUROLOGICAL: He is able to move extremities equally, although he is diffusely weak. He knows his name, knows where he is and follows commands. LABORATORY DATA: White cell count 8.1 and 9.4, hemoglobin is stable at 8.3, MCV 90, platelets 187, 76% neutrophils. INR 1.4 and a sodium 133, creatinine 1.24, albumin 2.8, bilirubin 1.7. Transaminases normal. Alkaline phosphatase normal. Serology was negative. Microbiology with Enterococcus faecalis, 2/2 sets of blood cultures. The patient had transesophageal echo showed thickened aortic valve leaflets, possible mass attached to one of the aortic valve leaflets, severe aortic regurg. Pacemaker wire seemed to be okay. Transthoracic with also the vegetation in the right coronary cusp of the aortic valve and moderate to severe aortic regurg. EF is 55% to 60%. Chest x-ray with enlarged cardiomediastinal silhouette. 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 DISCUSSION: The patient's endocarditis will be treated with antimicrobials through a PICC line. The combination of ampicillin or penicillin plus gentamicin is the standard of care combination. An alternate regimen includes a combination of Rocephin and ampicillin. As patients have failed this regimen in the past, I am going to start him on ampicillin and gentamicin particularly in view of the severe aortic insufficiency. Monitor closely his renal function. Treat for 6 weeks. If he starts developing renal insufficiency, then switch him to ampicillin and Rocephin. He may eventually require valve replacement, probably will. Complications such as embolism with strokes are a threat particularly in the first week or 2 of the therapy. Job ID: [id number] [facility]AMPUSAdrienne
[2019-05-11] MEDS: Ampicillin 2 GM in Sodium Chloride 0.9% 100 ML IVPB SCH ×5 (00:49→16:42)
[2019-05-11] MEDS ORDERED: Vancomycin HCl 1 GM in Premix Bag 1 BAG IVPB SCH (03:00)
[2019-05-11 04:40] LABS: #Eosinphils 0.2 thou/uL (0.0-0.7); #Lymphocytes 1.8 thou/uL (1.20-3.40); #Monocytes 0.7 thou/uL (0.11-0.59); #Neutrophils 6.9 thou/uL (1.40-6.50); %Basophils 0.1 % (0.0-1.0); %Eosinophils 2.6 % (0.0-10.0); %Lymphocytes 18.3 % (21.0-51.0); %Monocytes 7.3 % (0.0-10.0); %Neutrophils 71.7 % (42.0-75.0); Hemoglobin 7.6 g/dL (14.0-18.0); Mean Corpuscular HGB CONC 31.4 g/dL (32.0-36.0); Mean Corpuscular Hemoglobin 27.9 pg (27.0-31.0); Mean Corpuscular Volume 88.7 fL (78.0-98.0); Mean Platelet Volume 9.4 fL (7.4-10.4); Platelet Count 177 thou/uL (130-400); RBC Distribution Width 19.8 % (11.5-14.5); Red Blood Cell (RBC) Count 2.73 mill/uL (4.70-6.10); White Blood Cell (WBC) Count 9.7 thou/uL (4.8-10.8)
[2019-05-11 04:58] LABS: Anion Gap 9 mmol/L (10-20); BUN (Urea Nitrogen) 31 mg/dL (8.4-25.7); Calc. Creatinine Clearance 49 mL/min (70-130); Calcium 8.7 mg/dL (7.8-10.44); Carbon Dioxide 25 mmol/L (23-31); Chloride 105 mmol/L (98-107); Estimated GFR-MDRD 53; Glucose 102 mg/dL (83-110); Potassium 4.2 mmol/L (3.5-5.1); Sodium 135 mmol/L (136-145)
[2019-05-11] MEDS: Furosemide 40 MG/4 ML VIAL SLOW IVP SCH ×2 (05:38→16:37)
[2019-05-11] MEDS: Gentamicin Sulfate 80 MG in Premix Bag 1 BAG IVPB SCH (06:02)
[2019-05-11] MEDS: Carvedilol 3.125 MG TAB PO SCH (08:47)
[2019-05-11] MEDS: Famotidine 20 MG TAB PO SCH (08:47)
[2019-05-11] MEDS: Gabapentin 300 MG CAP PO SCH (08:47)
[2019-05-11] MEDS: Aspirin Chewable 81 MG TAB PO SCH (08:47)
[2019-05-11] MEDS: Lisinopril 2.5 MG TAB PO SCH (08:47)
[2019-05-11] MEDS: Finasteride 5 MG TAB PO SCH (08:47)
[2019-05-11] MEDS: Enoxaparin Sodium 40 MG/0.4 ML SYRINGE SC SCH (09:52)
[2019-05-11] MEDS ORDERED: Furosemide 20 MG/2 ML VIAL SLOW IVP SCH (16:45)
--- NOTE | 2019-05-11 17:09 | PDOC.PN ---
- Subjective Encounter Start Date: 05/11/19 Encounter Start Time: 10:00 Pt seen for followup re: infective endocarditis. Says he feels better. - Objective Resuscitation Status - Order Detail: 05/07/19 14:32 Resuscitation Status Routine Resuscitation Status: FULL: Full Resuscitation MAR Reviewed: Yes Vital Signs & Weight: Vital Signs (12 hours) Temp Pulse Pulse Pulse Resp BP BP 05/11/19 16:07 97.6 F 73 18 05/11/19 12:41 97.9 F 80 18 05/11/19 10:44 82 81 103/51 L 88/50 L 05/11/19 08:47 73 05/11/19 08:40 98.7 F 73 18 BP BP Pulse Ox 05/11/19 16:07 97/53 L 05/11/19 12:41 94/51 L 95 05/11/19 10:44 05/11/19 08:47 05/11/19 08:40 109/69 94 L Weight Admit Weight 181 lb 8 oz Weight 167 lb 12.8 oz I&O: 05/10/19 05/11/19 05/12/19 06:59 06:59 06:59 Intake Total 1400 680 Output Total 600 Balance 800 680 Result Diagrams: 05/11/19 04:21 05/11/19 04:21 EKG Reviewed by me: Yes (Tele: NSR) Phys Exam - Physical Examination Constitutional: NAD HEENT: moist MMs Neck: supple Librado crackles Cardiovascular: RRR Gastrointestinal: soft Neurological: moves all 4 limbs Psychiatric: normal affect Dx/Plan (1) Infective endocarditis Code(s): I33.0 - ACUTE AND SUBACUTE INFECTIVE ENDOCARDITIS Status: Acute Qualifiers: Infective endocarditis organism: bacterial Comment: Blood cultures growing enterococcus fecalis and gram positive cocci, pt has been switched to ampicillin and gentamicin. (2) Acute on chronic diastolic CHF (congestive heart failure), NYHA class 3 Code(s): I50.33 - ACUTE ON CHRONIC DIASTOLIC (CONGESTIVE) HEART FAILURE Status : Acute Comment: continue furosemide (3) Afib Code(s): I48.91 - UNSPECIFIED ATRIAL FIBRILLATION Status: Chronic Qualifiers: Atrial fibrillation type: paroxysmal Qualified Code(s): I48.0 - Paroxysmal atrial fibrillation Comment: Continue Coreg 3.125 mg PO BID. (4) Cirrhosis of liver Code(s): K74.60 - UNSPECIFIED CIRRHOSIS OF LIVER Status: Chronic Qualifiers: Hepatic cirrhosis type: alcoholic cirrhosis Ascites presence: without ascites Qualified Code(s): K70.30 - Alcoholic cirrhosis of liver without ascites Comment: stable (5) Dyslipidemia Code(s): E78.5 - HYPERLIPIDEMIA, UNSPECIFIED Status: Chronic Comment: continue Lipitor 80 mg (6) HTN (hypertension) Code(s): I10 - ESSENTIAL (PRIMARY) HYPERTENSION Status: Chronic Qualifiers: Hypertension type: essential hypertension Qualified Code(s): I10 - Essential (primary) hypertension Comment: controlled - Plan * . Review of Systems - Review of Systems Constitutional: weakness Cardiovascular: negative: chest pain, palpitations, orthopnea, paroxysmal nocturnal dyspnea, edema, light headedness - Medications/Allergies Allergies/Adverse Reactions: Allergies Allergy/AdvReac Type Severity Reaction Status Date / Time Benzodiazepines Allergy Verified 05/07/19 13:19 Medications: Current Medications Acetaminophen (Tylenol) 650 mg PO Q4H PRN PRN Reason: Headache/Fever/Mild Pain (1-3) Last Admin: 05/07/19 20:35 Dose: 650 mg Aspirin (Aspirin Chewable) 81 mg PO DAILY [facility] Last Admin: 05/11/19 08:47 Dose: 81 mg Atorvastatin Calcium (Lipitor) 80 mg PO HS [facility] Last Admin: 05/10/19 20:28 Dose: 80 mg Bisacodyl (Dulcolax) 10 mg [place] DAILYPRN PRN PRN Reason: Constipation Carvedilol (Coreg) 3.125 mg PO BID [facility] Last Admin: 05/11/19 08:47 Dose: 3.125 mg Enoxaparin Sodium (Lovenox) 40 mg SC 0900 [facility] Last Admin: 05/11/19 09:52 Dose: 40 mg Famotidine (Pepcid) 20 mg PO BID [facility] Last Admin: 05/11/19 08:47 Dose: 20 mg Finasteride (Proscar) 5 mg PO DAILY [facility] Last Admin: 05/11/19 08:47 Dose: 5 mg Furosemide (Lasix) 40 mg SLOW IVP 0600,1400 [facility] Last Admin: 05/11/19 16:37 Dose: Not Given Furosemide (Lasix) 20 mg SLOW IVP NOW [facility] Stop: 05/11/19 18:45 Last Admin: 05/11/19 16:42 Dose: 20 mg Gabapentin (Neurontin) 300 mg PO BID [facility] Last Admin: 05/11/19 08:47 Dose: 300 mg Guaifenesin/Dextromethorphan (Robitussin Dm) 15 ml PO Q4H PRN PRN Reason: Cough Ampicillin Sodium 2 gm/ Sodium (Chloride) 100 mls @ 200 mls/hr IVPB Q4HR [facility] Last Admin: 05/11/19 16:42 Dose: 100 mls Gentamicin Sulfate 80 mg/ (Device) 100 mls @ 200 mls/hr IVPB Q8HR [facility] Lactulose (Lactulose) 30 gm PO BID [facility] Last Admin: 05/11/19 08:50 Dose: Not Given Lisinopril (Zestril) 2.5 mg PO DAILY [facility] Last Admin: 05/11/19 08:47 Dose: 2.5 mg Miscellaneous Medication (Pharmacy To Dose) 1 each IVPB PRN PRN PRN Reason: ENDOCARDITIS Senna/Docusate Sodium (Senokot S) 2 tab PO BID PRN PRN Reason: Constipation
[2019-05-11] MEDS ORDERED: Gentamicin Sulfate 80 MG in Premix Bag 1 BAG IVPB SCH ×2 (18:00→22:00)
--- NOTE | 2019-05-11 18:05 | PRG ---
DATE OF SERVICE: 05/11/2019 SUBJECTIVE: Mr. Mckeon is still sleepy, but arousable. No shortness of breath or chest pain. No back pain. No abdominal pain or diarrhea. OBJECTIVE: VITAL SIGNS: Temperature 97.6, blood pressure normal, pulse 73, respirations 18. GENERAL: Appears in no distress. HEENT: Ocular movements conjugate. LUNGS: Symmetric. Clear breath sounds. HEART: S1 and S2. Regular rate. No S3 or S4. ABDOMEN: Soft, not distended or tender. LABORATORY DATA: White cell count 9.7, hemoglobin 7.6, platelets 177, normal differential. 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 Since the patient has AICD or pacemaker in place, the possibility of lead colonization is not completely ruled out. The transesophageal echocardiogram has a discriminating ability limited to 3 mm. Anything less than that was not going to be detected, so it is conceivable that he might have in addition to the valvular vegetation, colonization of the AICD. This was not demonstrated in the HERI scan, so I think we will recommend continuation of IV therapy for 6 weeks. The end date is calculated to be the end of May, and a PICC line will be placed. The treatment will continue to be ampicillin and gentamicin with gentamicin trough levels twice a week and metabolic panel three times a week. Job ID: [id number]
[2019-05-11] MEDS ORDERED: Ampicillin 2 GM VIAL ONE (23:48)
[2019-05-12] MEDS ORDERED: Ampicillin 2 GM VIAL ONE (04:14)
[2019-05-12] MEDS: Enoxaparin Sodium 40 MG/0.4 ML SYRINGE SC SCH (09:30)
[2019-05-12] MEDS: Ampicillin 2 GM in Sodium Chloride 0.9% 100 ML IVPB SCH ×6 (09:30→21:52)
[2019-05-12] MEDS: Finasteride 5 MG TAB PO SCH (09:31)
[2019-05-12] MEDS: Aspirin Chewable 81 MG TAB PO SCH (09:31)
[2019-05-12] MEDS: Gabapentin 300 MG CAP PO SCH ×3 (09:31→21:53)
[2019-05-12] MEDS: Famotidine 20 MG TAB PO SCH ×3 (09:31→21:53)
[2019-05-12] MEDS: Carvedilol 3.125 MG TAB PO SCH ×3 (10:21→21:53)
[2019-05-12] MEDS: Atorvastatin Calcium 40 MG TAB PO SCH ×2 (10:21→21:53)
[2019-05-12] MEDS: Lisinopril 2.5 MG TAB PO SCH (11:31)
--- NOTE | 2019-05-12 15:25 | PDOC.PN ---
- Subjective Encounter Start Date: 05/12/19 Encounter Start Time: 08:40 Pt seen for followup re: infective endocarditis. Feels better, no new complaints. - Objective Resuscitation Status - Order Detail: 05/07/19 14:32 Resuscitation Status Routine Resuscitation Status: FULL: Full Resuscitation MAR Reviewed: Yes Vital Signs & Weight: Vital Signs (12 hours) Temp Pulse Pulse Pulse Resp BP BP 05/12/19 11:40 97.6 F 71 18 05/12/19 11:31 69 05/12/19 11:06 73 71 121/60 113/57 L 05/12/19 07:35 97.6 F 69 18 BP Pulse Ox Pulse Ox 05/12/19 11:40 115/56 L 05/12/19 11:31 05/12/19 11:06 97 05/12/19 07:35 107/58 L 94 L Weight Admit Weight 181 lb 8 oz Weight 167 lb 12.8 oz I&O: 05/11/19 05/12/19 05/13/19 06:59 06:59 06:59 Intake Total 680 720 Output Total 400 Balance 680 320 Result Diagrams: 05/11/19 04:21 05/13/19 15:40 EKG Reviewed by me: Yes (Tele: NSR) Phys Exam - Physical Examination Constitutional: NAD HEENT: moist MMs Neck: supple Respiratory: clear to auscultation bilateral Cardiovascular: RRR Gastrointestinal: soft Neurological: moves all 4 limbs Psychiatric: normal affect Dx/Plan (1) Infective endocarditis Code(s): I33.0 - ACUTE AND SUBACUTE INFECTIVE ENDOCARDITIS Status: Acute Qualifiers: Infective endocarditis organism: bacterial Comment: Continue ampicillin and gentamicin. Pt to have PICC line. Will need IV antibiotics till the end of May. (2) Acute on chronic diastolic CHF (congestive heart failure), NYHA class 3 Code(s): I50.33 - ACUTE ON CHRONIC DIASTOLIC (CONGESTIVE) HEART FAILURE Status : Acute Comment: continue furosemide 40 mg PO daily (3) Afib Code(s): I48.91 - UNSPECIFIED ATRIAL FIBRILLATION Status: Chronic Qualifiers: Atrial fibrillation type: paroxysmal Qualified Code(s): I48.0 - Paroxysmal atrial fibrillation Comment: Continue Coreg 3.125 mg PO BID. (4) Cirrhosis of liver Code(s): K74.60 - UNSPECIFIED CIRRHOSIS OF LIVER Status: Chronic Qualifiers: Hepatic cirrhosis type: alcoholic cirrhosis Ascites presence: without ascites Qualified Code(s): K70.30 - Alcoholic cirrhosis of liver without ascites Comment: stable (5) Dyslipidemia Code(s): E78.5 - HYPERLIPIDEMIA, UNSPECIFIED Status: Chronic Comment: on Lipitor 80 mg (6) HTN (hypertension) Code(s): I10 - ESSENTIAL (PRIMARY) HYPERTENSION Status: Chronic Qualifiers: Hypertension type: essential hypertension Qualified Code(s): I10 - Essential (primary) hypertension Comment: controlled - Plan * . Review of Systems - Review of Systems Cardiovascular: negative: chest pain, palpitations, orthopnea, paroxysmal nocturnal dyspnea, edema, light headedness Gastrointestinal: negative: Nausea, Vomiting, Abdominal Pain, Diarrhea, Constipation, Melena, Hematochezia - Medications/Allergies Allergies/Adverse Reactions: Allergies Allergy/AdvReac Type Severity Reaction Status Date / Time Benzodiazepines Allergy Verified 05/07/19 13:19 Medications: Current Medications Acetaminophen (Tylenol) 650 mg PO Q4H PRN PRN Reason: Headache/Fever/Mild Pain (1-3) Last Admin: 05/07/19 20:35 Dose: 650 mg Aspirin (Aspirin Chewable) 81 mg PO DAILY [facility] Last Admin: 05/12/19 09:31 Dose: 81 mg Atorvastatin Calcium (Lipitor) 80 mg PO HS [facility] Last Admin: 05/12/19 10:21 Dose: Not Given Bisacodyl (Dulcolax) 10 mg [place] DAILYPRN PRN PRN Reason: Constipation Carvedilol (Coreg) 3.125 mg PO BID [facility] Last Admin: 05/12/19 11:31 Dose: 3.125 mg Enoxaparin Sodium (Lovenox) 40 mg SC 0900 [facility] Last Admin: 05/12/19 09:30 Dose: 40 mg Famotidine (Pepcid) 20 mg PO BID [facility] Last Admin: 05/12/19 10:21 Dose: Not Given Finasteride (Proscar) 5 mg PO DAILY [facility] Last Admin: 05/12/19 09:31 Dose: 5 mg Gabapentin (Neurontin) 300 mg PO BID [facility] Last Admin: 05/12/19 10:21 Dose: Not Given Guaifenesin/Dextromethorphan (Robitussin Dm) 15 ml PO Q4H PRN PRN Reason: Cough Ampicillin Sodium 2 gm/ Sodium (Chloride) 100 mls @ 200 mls/hr IVPB Q4HR [facility] Last Admin: 05/12/19 10:20 Dose: Not Given Gentamicin Sulfate 80 mg/ (Device) 100 mls @ 200 mls/hr IVPB Q8HR [facility] Lactulose (Lactulose) 30 gm PO BID [facility] Last Admin: 05/12/19 11:31 Dose: Not Given Lisinopril (Zestril) 2.5 mg PO DAILY [facility] Last Admin: 05/12/19 11:31 Dose: 2.5 mg Miscellaneous Medication (Pharmacy To Dose) 1 each IVPB PRN PRN PRN Reason: ENDOCARDITIS Senna/Docusate Sodium (Senokot S) 2 tab PO BID PRN PRN Reason: Constipation
--- NOTE | 2019-05-12 15:59 | SPC ---
Ultrasound and Fluoroscopic guided right upper extremity PICC placement HISTORY: Endocarditis. Patient needs long-term IV antibiotics. FINDINGS: Informed consent obtained prior to the procedure. An appropriate access site was determined with ultrasound guidance. The area was then meticulously pr epped and draped in usual sterile fashion. Skin overlying the right basilic vein anesthetized with 1% buffered lidocaine. Utilizing direct sonog raphic guidance, vascular access is obtained via the right basilic vein, and an 0.018in guidewire was advanced to the cavoatrial junction. Intravascular length is calculated at 39 cm, and the PICC is cut accordingly. Needle is removed and replaced with a peel-away sheath. The PICC was advanced over the wire. Wire and peel-away sheath were removed. The tip of the catheter overlies the SVC. The catheter was accessed and aspirated/flushed easily. Exposure data: 0 minutes of fluoroscopic time 85 mGy square centimeter FINDINGS: Technically successful placement of a 39 centimeter single lumen 5 Tamazight right upper extremity PICC line. IMPRESSION: Successful ultrasound guided placement of a right upper extremity PICC.
[2019-05-12] MEDS ORDERED: Gentamicin 80 MG/2 ML VIAL IM SCH (21:00)
[2019-05-13] MEDS: Ampicillin 2 GM in Sodium Chloride 0.9% 100 ML IVPB SCH ×6 (01:52→22:10)
[2019-05-13] MEDS: Aspirin Chewable 81 MG TAB PO SCH (08:18)
[2019-05-13] MEDS: Gabapentin 300 MG CAP PO SCH ×2 (08:18→22:09)
[2019-05-13] MEDS: Finasteride 5 MG TAB PO SCH (08:18)
[2019-05-13] MEDS: Lisinopril 2.5 MG TAB PO SCH (08:18)
[2019-05-13] MEDS: Carvedilol 3.125 MG TAB PO SCH ×2 (08:19→22:10)
[2019-05-13] MEDS: Famotidine 20 MG TAB PO SCH ×2 (08:19→22:09)
[2019-05-13] MEDS: Furosemide 40 MG TAB PO SCH (08:19)
[2019-05-13] MEDS: Enoxaparin Sodium 40 MG/0.4 ML SYRINGE SC SCH (08:21)
[2019-05-13 16:24] LABS: Anion Gap 10 mmol/L (10-20); BUN (Urea Nitrogen) 33 mg/dL (8.4-25.7); Calc. Creatinine Clearance 44 mL/min (70-130); Calcium 8.8 mg/dL (7.8-10.44); Carbon Dioxide 23 mmol/L (23-31); Chloride 107 mmol/L (98-107); Estimated GFR-MDRD 50; Glucose 89 mg/dL (83-110); Magnesium 2.2 mg/dL (1.6-2.6); Potassium 4.4 mmol/L (3.5-5.1); Sodium 136 mmol/L (136-145)
--- NOTE | 2019-05-13 16:34 | PRG ---
DATE OF SERVICE: 05/13/2019 SUBJECTIVE: Mr. Mckeon is alert. He denies any headaches. No back pain or shortness of breath or chest pain. No abdominal pain. No diarrhea. Voiding without difficulty. OBJECTIVE: VITAL SIGNS: T-max 98.4, blood pressure 120/60, pulse 64, respirations 18, O2 saturation 96%. GENERAL: Awake, alert, oriented, more alert than usual. Speech is normal. LUNGS: Clear. HEART: S1 and S2. Regular rate. ABDOMEN: Soft, not distended. EXTREMITIES: Moves all extremities equally. : No bladder distention. LABORATORY DATA: The white cell count 9.7, hemoglobin 7.6, platelets 177, and 71% neutrophils. The sodium 135. Last chem-7 is from 2 days ago; creatinine went up to 1.3. His last gentamicin trough is less than 0.5 today. Microbiology as noted before. 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 The plan is to continue ampicillin and gentamicin at the current doses for total of 6 weeks and end date will be at the end of May. PICC line is already in place. The gentamicin trough level target is less than 1 mcg/mL and the chem-7 should continue to be monitored 3 times a week. If the creatinine continues to increase, then we will have to switch him to a combination of ampicillin plus Rocephin instead. Job ID: [id number]
--- NOTE | 2019-05-13 19:54 | PRG ---
DATE OF SERVICE: 05/13/2019 SUBJECTIVE: An 78-year-old male admitted on the 07 of May with shortness of breath. His workup was consistent with endocarditis. He is currently on gentamicin and ampicillin. He denies any chest pain, shortness of breath, or palpitations. REVIEW OF SYSTEMS: All other review of systems was reviewed and was found negative. CURRENT MEDICATIONS: Reviewed. PHYSICAL EXAMINATION: VITAL SIGNS: Temperature 98, pulse rate of 64, respirations of 18, blood pressure 128/61 with O2 saturation 96% on room air, and weight of 160 pounds, on admission was 181 pounds. GENERAL: An 78-year-old male in no apparent distress. HEENT: Head, atraumatic and normocephalic. Sclerae anicteric. Moist mucous membranes. No oral lesion. NECK: Supple. No JVD appreciated. No carotid bruit. LUNGS: Clear to auscultation bilaterally. No wheezing, rales, or rhonchi. HEART: S1 and S2 present. Regular rate and rhythm. No rubs or gallops appreciated. No heaves or pulsation. ABDOMEN: Soft, nontender. Bowel sounds present. No rebound or guarding. EXTREMITIES: No edema or calf tenderness. NEUROLOGIC: Nonfocal. PSYCHIATRY: Normal affect. Alert, awake, and oriented x3. LABORATORY FINDINGS: Creatinine 1.38 with BUN 33, potassium 4.4, sodium 136. Hemoglobin 7.6, hematocrit 24.2, platelet 177. Potassium last week was 3.2. Troponin in the indeterminate range. Albumin 2.8. Gentamicin level was less than 0.5 on April,. Acute hepatitis profile was negative. Blood culture showed Enterococcus faecalis. Chest x-ray on admission was negative for infiltrate. It showed cardiomegaly. CT dissection protocol on admission showed bilateral pleural effusion. Echocardiogram showed left ventricular ejection fraction 55% to 60% with moderate mitral regurgitation, small vegetation noted on the right coronary cusp with moderate to severe aortic regurgitation, moderate tricuspid regurgitation, and severely elevated pulmonary artery pressure. INPATIENT PROCEDURES: On April,, the patient underwent transesophageal echocardiogram that showed thickening of the aortic valve leaflets with 0.5 cm mass suggestive of vegetation. Telemetry monitoring by my review showed sinus rhythm. Chest x-ray by my review as discussed above. IMPRESSION: 1. 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 2. Acute kidney injury on chronic kidney disease stage 2. 3. Acute on chronic diastolic heart failure. 4. Paroxysmal atrial fibrillation. 5. 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 6. Dyslipidemia. 7. Hypertension. 8. Severe aortic regurgitation. 9. Moderate protein-calorie malnutrition. 10. Mild mitral regurgitation. 11. Nonobstructing bilateral renal calculi. 12. History of pacemaker placement. 13. Penicillin allergy. 14. Hypokalemia. 15. Hyponatremia. 16. Type 2 myocardial infarction/demand ischemia. 17. Coagulopathy of unclear etiology. 18. Elevated D-dimer with negative CT angiogram of the chest. 19. Chronic anemia. PLAN: Gentamicin will be discontinued due to acute kidney injury. I discussed with Dr. Swan, who recommended ceftriaxone 2 g q.12 hourly. Ampicillin 2 g every 4 hourly will be continued. We will continue aspirin with beta blockers, statin. Continue oral Lasix. We will continue lactulose. DVT prophylaxis with Lovenox. Continue vital signs per protocol. DISPOSITION: Probably disposition to [facility] in 1 to 2 days once cleared by consultants. Plan was discussed with the patient, he stated understanding. A.m. labs will be ordered. Job ID: [id number]
[2019-05-13] MEDS: Atorvastatin Calcium 40 MG TAB PO SCH (22:09)
[2019-05-13] MEDS: cefTRIAXone\\ROCEPHIN 2 GM in Sodium Chloride 0.9% 100 ML IVPB SCH (22:11)
[2019-05-14] MEDS: Ampicillin 2 GM in Sodium Chloride 0.9% 100 ML IVPB SCH ×5 (02:29→16:18)
[2019-05-14 06:19] LABS: #Eosinphils 0.3 thou/uL (0.0-0.7); #Lymphocytes 1.7 thou/uL (1.20-3.40); #Monocytes 0.7 thou/uL (0.11-0.59); #Neutrophils 4.2 thou/uL (1.40-6.50); %Basophils 0.1 % (0.0-1.0); %Lymphocytes 24.8 % (21.0-51.0); %Monocytes 9.7 % (0.0-10.0); %Neutrophils 61.3 % (42.0-75.0); Hemoglobin 7.9 g/dL (14.0-18.0); Mean Corpuscular HGB CONC 30.7 g/dL (32.0-36.0); Mean Corpuscular Hemoglobin 27.5 pg (27.0-31.0); Mean Corpuscular Volume 89.5 fL (78.0-98.0); Mean Platelet Volume 8.8 fL (7.4-10.4); Platelet Count 236 thou/uL (130-400); RBC Distribution Width 19.7 % (11.5-14.5); Red Blood Cell (RBC) Count 2.86 mill/uL (4.70-6.10); White Blood Cell (WBC) Count 6.9 thou/uL (4.8-10.8)
[2019-05-14 06:43] LABS: ALT (SGPT) 22 U/L (8-55); AST (SGOT) 41 U/L (5-34); Albumin 2.6 g/dL (3.4-4.8); Alkaline Phosphatase 122 U/L (40-150); Anion Gap 11 mmol/L (10-20); BUN (Urea Nitrogen) 35 mg/dL (8.4-25.7); Bilirubin, Total 0.5 mg/dL (0.2-1.2); Calc. Creatinine Clearance 36 mL/min (70-130); Calcium 8.8 mg/dL (7.8-10.44); Carbon Dioxide 24 mmol/L (23-31); Chloride 107 mmol/L (98-107); Estimated GFR-MDRD 39; Globulin 4.7 g/dL (2.4-3.5); Glucose 91 mg/dL (83-110); Potassium 4.5 mmol/L (3.5-5.1); Protein, Total 7.3 g/dL (5.8-8.1); Sodium 137 mmol/L (136-145)
[2019-05-14] MEDS ORDERED: Pharmacy to Dose ALL ABX IVPB PRN (07:39)
[2019-05-14] MEDS: Carvedilol 3.125 MG TAB PO SCH ×2 (08:26→20:33)
[2019-05-14] MEDS: Gabapentin 300 MG CAP PO SCH ×2 (08:26→20:34)
[2019-05-14] MEDS: Aspirin Chewable 81 MG TAB PO SCH (08:26)
[2019-05-14] MEDS: Famotidine 20 MG TAB PO SCH (08:26)
[2019-05-14] MEDS: Furosemide 40 MG TAB PO SCH (08:26)
[2019-05-14] MEDS: Finasteride 5 MG TAB PO SCH (08:26)
[2019-05-14] MEDS: cefTRIAXone\\ROCEPHIN 2 GM in Sodium Chloride 0.9% 100 ML IVPB SCH ×2 (08:27→20:33)
[2019-05-14] MEDS: Enoxaparin Sodium 40 MG/0.4 ML SYRINGE SC SCH (08:28)
[2019-05-14] MEDS: Sodium Chloride 0.9% 1,000 ML IV SCH ×2 (10:32→16:21)
--- NOTE | 2019-05-14 12:24 | EKG ---
Test Reason : CP Blood Pressure : / mmHG Vent. Rate : 068 BPM Atrial Rate : 048 BPM P-R Int : 000 ms QRS Dur : 206 ms QT Int : 538 ms P-R-T Axes : 000 -75 100 degrees QTc Int : 572 ms Ventricular-paced rhythm with occasional Premature ventricular complexes Abnormal ECG Confirmed by ALL BADILLO ([id number]), editor book VAUGHN LOONEY ([id number]) on 05/14/2019 12:24:08 PM Referred By: Confirmed By:ALL BADILLO
[2019-05-14] MEDS: Atorvastatin Calcium 40 MG TAB PO SCH (20:33)
--- NOTE | 2019-05-14 22:01 | PDOC.PN ---
- Subjective Encounter Start Date: 05/14/19 Encounter Start Time: 11:15 Patient seen and examined for endocarditis. No fever/chills. No CP/SOB. No new complaints. No overnight events - Objective Resuscitation Status - Order Detail: 05/07/19 14:32 Resuscitation Status Routine Resuscitation Status: FULL: Full Resuscitation MAR Reviewed: Yes Vital Signs & Weight: Vital Signs (12 hours) Temp Pulse Pulse Pulse Resp BP BP 05/14/19 16:00 97.4 F L 78 18 05/14/19 11:53 97.9 F 76 18 05/14/19 11:36 80 70 124/58 L 103/56 L BP Pulse Ox Pulse Ox Pulse Ox 05/14/19 16:00 117/57 L 98 05/14/19 11:53 112/55 L 98 05/14/19 11:36 98 99 Weight Admit Weight 181 lb 8 oz Weight 159 lb 9.6 oz I&O: 05/13/19 05/14/19 05/15/19 06:59 06:59 06:59 Intake Total 480 2540 2520 Output Total 200 320 Balance 480 2340 2200 Result Diagrams: 05/14/19 05:49 05/14/19 05:49 EKG Reviewed by me: Yes (Tele paced) Phys Exam - Physical Examination Constitutional: NAD Respiratory: no wheezing, no rales, no rhonchi, clear to auscultation bilateral Cardiovascular: RRR, no rub no heaves/pulsations Gastrointestinal: soft, non-tender, no distention, positive bowel sounds Musculoskeletal: no edema, pulses present Neurological: non-focal, normal sensation, moves all 4 limbs Psychiatric: normal affect, A&O x 3 Skin: no rash Dx/Plan - Plan DVT proph w/SCDs IMPRESSION: 1. 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 2. Acute kidney injury on chronic kidney disease stage 2. 3. Acute on chronic diastolic heart failure. 4. Paroxysmal atrial fibrillation. 5. 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 6. Dyslipidemia. 7. Hypertension. 8. Severe aortic regurgitation. 9. Moderate protein-calorie malnutrition. 10. Mild mitral regurgitation. 11. Nonobstructing bilateral renal calculi. 12. History of pacemaker placement. 13. Penicillin allergy. 14. Hypokalemia. 15. Hyponatremia. 16. Type 2 myocardial infarction/demand ischemia. 17. Coagulopathy of unclear etiology. 18. Elevated D-dimer with negative CT angiogram of the chest. 19. Chronic anemia. PLAN: Cr 1.7 today Hold ACEI Start IVF AM labs Cont Ampicillin and Rocephin Cont oterh meds as below Reduce Lovenox dose to 30 mg daily Monitor for volume overload Review of Systems - Review of Systems Respiratory: negative: Cough, Dry, Shortness of Breath, Hemoptysis, SOB with Excertion, Pleuritic Pain, Sputum, Wheezing Cardiovascular: negative: chest pain, palpitations, orthopnea, paroxysmal nocturnal dyspnea, edema, light headedness, other Gastrointestinal: negative: Nausea, Vomiting, Abdominal Pain, Diarrhea, Constipation, Melena, Hematochezia, Other - Medications/Allergies Allergies/Adverse Reactions: Allergies Allergy/AdvReac Type Severity Reaction Status Date / Time Benzodiazepines Allergy Verified 05/07/19 13:19 Medications: Current Medications Acetaminophen (Tylenol) 650 mg PO Q4H PRN PRN Reason: Headache/Fever/Mild Pain (1-3) Last Admin: 05/07/19 20:35 Dose: 650 mg Aspirin (Aspirin Chewable) 81 mg PO DAILY [facility] Last Admin: 05/14/19 08:26 Dose: 81 mg Atorvastatin Calcium (Lipitor) 80 mg PO HS [facility] Last Admin: 05/14/19 20:33 Dose: 80 mg Bisacodyl (Dulcolax) 10 mg [place] DAILYPRN PRN PRN Reason: Constipation Carvedilol (Coreg) 3.125 mg PO BID [facility] Last Admin: 05/14/19 20:33 Dose: 3.125 mg Enoxaparin Sodium (Lovenox) 40 mg SC 0900 [facility] Last Admin: 05/14/19 08:28 Dose: 40 mg Famotidine (Pepcid) 20 mg PO DAILY [facility] Finasteride (Proscar) 5 mg PO DAILY [facility] Last Admin: 05/14/19 08:26 Dose: 5 mg Furosemide (Lasix) 40 mg PO DAILY-AC [facility] Last Admin: 05/14/19 08:26 Dose: 40 mg Gabapentin (Neurontin) 300 mg PO BID [facility] Last Admin: 05/14/19 20:34 Dose: 300 mg Guaifenesin/Dextromethorphan (Robitussin Dm) 15 ml PO Q4H PRN PRN Reason: Cough Last Admin: 05/13/19 12:16 Dose: 15 ml Ceftriaxone Sodium 2 gm/ (Sodium Chloride) 100 mls @ 200 mls/hr IVPB Q12HR [facility] Last Admin: 05/14/19 20:33 Dose: 100 mls Ampicillin Sodium 2 gm/ Sodium (Chloride) 100 mls @ 200 mls/hr IVPB Q6HR [facility] Last Admin: 05/14/19 16:18 Dose: 100 mls Lactulose (Lactulose) 30 gm PO BID [facility] Last Admin: 05/14/19 20:34 Dose: Not Given Lisinopril (Zestril) 2.5 mg PO DAILY [facility] Last Admin: 05/13/19 08:18 Dose: 2.5 mg Miscellaneous Medication (Pharmacy To Dose) 1 each IVPB DAILYPRN PRN PRN Reason: Pharmacy to dose Senna/Docusate Sodium (Senokot S) 2 tab PO BID PRN PRN Reason: Constipation
[2019-05-15] MEDS: Ampicillin 2 GM in Sodium Chloride 0.9% 100 ML IVPB SCH ×4 (00:33→17:40)
[2019-05-15] MEDS: Enoxaparin Sodium 40 MG/0.4 ML SYRINGE SC SCH (09:31)
[2019-05-15] MEDS: cefTRIAXone\\ROCEPHIN 2 GM in Sodium Chloride 0.9% 100 ML IVPB SCH ×2 (09:32→21:15)
[2019-05-15] MEDS: Gabapentin 300 MG CAP PO SCH ×2 (09:32→21:15)
[2019-05-15] MEDS: Finasteride 5 MG TAB PO SCH (09:32)
[2019-05-15] MEDS: Famotidine 20 MG TAB PO SCH (09:32)
[2019-05-15] MEDS: Furosemide 40 MG TAB PO SCH (09:33)
[2019-05-15] MEDS: Aspirin Chewable 81 MG TAB PO SCH (09:33)
[2019-05-15] MEDS: Carvedilol 3.125 MG TAB PO SCH ×2 (09:33→21:15)
[2019-05-15 10:46] LABS: Anion Gap 13 mmol/L (10-20); BUN (Urea Nitrogen) 32 mg/dL (8.4-25.7); Calc. Creatinine Clearance 37 mL/min (70-130); Calcium 8.9 mg/dL (7.8-10.44); Carbon Dioxide 21 mmol/L (23-31); Chloride 110 mmol/L (98-107); Estimated GFR-MDRD 41; Glucose 104 mg/dL (83-110); Potassium 3.9 mmol/L (3.5-5.1); Sodium 140 mmol/L (136-145)
[2019-05-15] MEDS ORDERED: Sodium Chloride 0.9% 1,000 ML IV SCH (12:00)
[2019-05-15] MEDS: Sodium Chloride 0.9% 1,000 ML IV SCH ×2 (13:48→17:40)
[2019-05-15] MEDS: Atorvastatin Calcium 40 MG TAB PO SCH (21:15)
--- NOTE | 2019-05-15 23:37 | PDOC.PN ---
- Subjective Encounter Start Date: 05/15/19 Encounter Start Time: 11:15 Patient seen and examined for RDONEY/Endocarditis. No CP. No new complaints. No overnight events - Objective Resuscitation Status - Order Detail: 05/07/19 14:32 Resuscitation Status Routine Resuscitation Status: FULL: Full Resuscitation MAR Reviewed: Yes Vital Signs & Weight: Vital Signs (12 hours) Temp Pulse Pulse Pulse Resp BP BP 05/15/19 20:00 97.4 F L 73 18 05/15/19 16:41 97.6 F 65 18 05/15/19 13:42 97.8 F 65 18 05/15/19 11:40 63 64 123/57 L 122/56 L BP Pulse Ox 05/15/19 20:00 112/55 L 98 05/15/19 16:41 103/50 L 98 05/15/19 13:42 108/53 L 96 05/15/19 11:40 Weight Admit Weight 181 lb 8 oz Weight 161 lb I&O: 05/14/19 05/15/19 05/16/19 06:59 06:59 06:59 Intake Total 2540 2520 1940 Output Total 200 320 Balance 2340 2200 1940 Result Diagrams: 05/14/19 05:49 05/16/19 03:48 Additional Labs: Accuchecks 05/15/19 05/15/19 16:43 10:53 POC Glucose 111 H 122 H EKG Reviewed by me: Yes Phys Exam - Physical Examination Constitutional: NAD Respiratory: no wheezing, no rhonchi Cardiovascular: RRR, no rub Gastrointestinal: soft, non-tender, positive bowel sounds Musculoskeletal: no edema Neurological: moves all 4 limbs Dx/Plan - Plan DVT proph w/SCDs IMPRESSION: 1. 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 2. Acute kidney injury on chronic kidney disease stage 2 - on IVF 3. Acute on chronic diastolic heart failure - improved 4. Paroxysmal atrial fibrillation. 5. 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 6. Dyslipidemia. 7. Hypertension. 8. Severe aortic regurgitation. 9. Moderate protein-calorie malnutrition. 10. Mild mitral regurgitation. 11. Nonobstructing bilateral renal calculi. 12. History of pacemaker placement. 13. Penicillin allergy. 14. Hypokalemia. 15. Hyponatremia. 16. Type 2 myocardial infarction/demand ischemia. 17. Coagulopathy of unclear etiology. 18. Elevated D-dimer with negative CT angiogram of the chest. 19. Chronic anemia. PLAN: Cont IVF ACEI/Lasix on hold AM labs Cont Ampicillin and Rocephin for Endocarditis Cont other meds as below Review of Systems - Review of Systems Respiratory: negative: Cough, Dry, Shortness of Breath, Hemoptysis, SOB with Excertion, Pleuritic Pain, Sputum, Wheezing Cardiovascular: negative: chest pain, palpitations, orthopnea, paroxysmal nocturnal dyspnea, edema, light headedness, other Gastrointestinal: negative: Nausea, Vomiting, Abdominal Pain, Diarrhea, Constipation, Melena, Hematochezia, Other - Medications/Allergies Allergies/Adverse Reactions: Allergies Allergy/AdvReac Type Severity Reaction Status Date / Time Benzodiazepines Allergy Verified 05/07/19 13:19 Medications: Current Medications Acetaminophen (Tylenol) 650 mg PO Q4H PRN PRN Reason: Headache/Fever/Mild Pain (1-3) Last Admin: 05/07/19 20:35 Dose: 650 mg Aspirin (Aspirin Chewable) 81 mg PO DAILY [facility] Last Admin: 05/15/19 09:33 Dose: 81 mg Atorvastatin Calcium (Lipitor) 80 mg PO HS [facility] Last Admin: 05/15/19 21:15 Dose: 80 mg Bisacodyl (Dulcolax) 10 mg [place] DAILYPRN PRN PRN Reason: Constipation Carvedilol (Coreg) 3.125 mg PO BID [facility] Last Admin: 05/15/19 21:15 Dose: 3.125 mg Enoxaparin Sodium (Lovenox) 30 mg SC 0900 [facility] Famotidine (Pepcid) 20 mg PO DAILY [facility] Last Admin: 05/15/19 09:32 Dose: 20 mg Finasteride (Proscar) 5 mg PO DAILY [facility] Last Admin: 05/15/19 09:32 Dose: 5 mg Gabapentin (Neurontin) 300 mg PO BID [facility] Last Admin: 05/15/19 21:15 Dose: 300 mg Guaifenesin/Dextromethorphan (Robitussin Dm) 15 ml PO Q4H PRN PRN Reason: Cough Last Admin: 05/13/19 12:16 Dose: 15 ml Ceftriaxone Sodium 2 gm/ (Sodium Chloride) 100 mls @ 200 mls/hr IVPB Q12HR [facility] Last Admin: 05/15/19 21:15 Dose: 100 mls Ampicillin Sodium 2 gm/ Sodium (Chloride) 100 mls @ 200 mls/hr IVPB Q6HR [facility] Last Admin: 05/15/19 17:40 Dose: 100 mls Sodium Chloride (Normal Saline 0.9%) 1,000 mls @ 75 mls/hr IV .[id number] [facility] Last Admin: 05/15/19 17:40 Dose: 1,000 mls Lactulose (Lactulose) 30 gm PO BID [facility] Last Admin: 05/15/19 21:15 Dose: Not Given Lisinopril (Zestril) 2.5 mg PO DAILY [facility] Last Admin: 05/13/19 08:18 Dose: 2.5 mg Miscellaneous Medication (Pharmacy To Dose) 1 each IVPB DAILYPRN PRN PRN Reason: Pharmacy to dose Senna/Docusate Sodium (Senokot S) 2 tab PO BID PRN PRN Reason: Constipation
[2019-05-16] MEDS: Ampicillin 2 GM in Sodium Chloride 0.9% 100 ML IVPB SCH ×5 (00:36→23:46)
[2019-05-16 04:34] LABS: Anion Gap 11 mmol/L (10-20); BUN (Urea Nitrogen) 37 mg/dL (8.4-25.7); Calc. Creatinine Clearance 36 mL/min (70-130); Carbon Dioxide 22 mmol/L (23-31); Chloride 111 mmol/L (98-107); Estimated GFR-MDRD 39; Glucose 93 mg/dL (83-110); Potassium 4.2 mmol/L (3.5-5.1); Sodium 140 mmol/L (136-145)
[2019-05-16] MEDS: Sodium Chloride 0.9% 1,000 ML IV SCH ×2 (05:26→23:47)
[2019-05-16] MEDS: Famotidine 20 MG TAB PO SCH (09:01)
[2019-05-16] MEDS: Finasteride 5 MG TAB PO SCH (09:01)
[2019-05-16] MEDS: Gabapentin 300 MG CAP PO SCH ×2 (09:01→20:49)
[2019-05-16] MEDS: Enoxaparin Sodium 30 MG/0.3 ML SYRINGE SC SCH (09:02)
[2019-05-16] MEDS: Carvedilol 3.125 MG TAB PO SCH ×2 (09:02→20:49)
[2019-05-16] MEDS: Aspirin Chewable 81 MG TAB PO SCH (09:02)
[2019-05-16] MEDS: cefTRIAXone\\ROCEPHIN 2 GM in Sodium Chloride 0.9% 100 ML IVPB SCH ×2 (09:03→20:49)
--- NOTE | 2019-05-16 10:45 | CON ---
DATE OF CONSULTATION: HISTORY OF PRESENT ILLNESS: Mr. Mckeon is an 78-year-old white man, currently an inmate/incarcerated, and was initially admitted for chest pain. He was found to have infective endocarditis. He is receiving IV antibiotics which included gentamicin. He did develop a few days later acute kidney injury. They feeling this may be related to an ATN from the gentamicin use. Gentamicin has now been discontinued. He is now being followed up by the [facility]al [facility] for management of his acute kidney injury. REVIEW OF SYSTEMS: No chest pain. No shortness of breath. No nausea. No vomiting. No diarrhea. No constipation. Decreased appetite. Decreased energy level. Decreased p.o. intake. No headache. No diplopia. No productive cough. No fever or chills. MEDICATIONS: The patient is currently status post: 1. Gentamicin - currently on ampicillin 2 g IV q.6. 2. Aspirin 81 mg daily. 3. Atorvastatin 80 mg at bedtime. 4. Carvedilol 3.125 mg p.o. b.i.d. 5. Ceftriaxone 2 g IV q.12. 6. Lovenox 30 mg subcu daily. 7. Famotidine 40 mg tablet once a day. 8. Proscar 5 mg daily. 9. Furosemide 40 mg daily - on hold. 10. Gabapentin 300 mg p.o. b.i.d. 11. Lactulose 30 g as directed. 12. Lisinopril 2.5 mg tab on hold. 13. Normal saline 75 mL/hour. PAST MEDICAL HISTORY: BPH, recent diagnosis of infective endocarditis, hyperlipidemia, GERD, history of paroxysmal atrial fibrillation - not on anticoagulation, history of hypertension, chronic venous insufficiency. PAST SURGICAL HISTORY: Status post pacemaker placement, status post cataract surgery, status post craniotomy for intracranial bleed, status post left hip surgery for left hip trauma. ALLERGIES: BENZODIAZEPINE, PENICILLIN. TRAUMA: Status post left hip injury. IMMUNIZATION: Up-to-date. HOSPITALIZATIONS: Please see past medical history. SOCIAL HISTORY: The patient currently incarcerated, originally from [place]. He is , three children. 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 Education, high school. Denies any IV drug abuse. Positive for heavy alcohol use for the last 15 years. FAMILY HISTORY: No family history of ESRD. PHYSICAL EXAMINATION: VITAL SIGNS: Blood pressure is 114/58, heart rate 68, respiratory rate 18, temperature is 96.1, and pulse ox 97%. GENERAL: Noted to be awake, alert, supine, comfortable, not in distress. SKIN: Adequate turgor. HEENT: He has a pinkish conjunctivae. Anicteric sclerae. NECK: No neck mass. No carotid bruits. No JVD. CHEST: No deformities. LUNGS: Clear breath sounds. No wheezing. No crackles. HEART: Normal sinus rhythm. No murmur. No gallops. No rubs. ABDOMEN: Globular, soft, nontender. No masses. EXTREMITIES: No edema. No deformities. LABORATORY DATA: Laboratories of May 14, 2019; white count 6.9, hemoglobin 7.9. May 16, 2019; sodium 140, potassium 4.2, chloride 111, carbon dioxide 22, BUN 37, creatinine 1.69, glucose 93, calcium 9. May 15, 2019, creatinine 1.63. May 14, 2019, creatinine 1.7. May 13, 2019, creatinine 1.38. May 11, 2019, creatinine 1.3. May 08, 2019, creatinine 0.99. ASSESSMENT AND PLAN: 1. Acute kidney injury - consider possibility of acute tubular necrosis secondary to gentamicin use. For the moment, agree with current management. Continue normal saline infusion with this patient. We will review urinalysis with this patient. In addition, a renal ultrasound will also be ordered if this has not been ordered yet. 2. ? infective endocarditis - Dr. Swan is following. Currently, on IV antibiotics. 3. Anemia, continue to observe p.r.n. blood transfusion. 4. No indication for any dialytic intervention. Agree with current management. Job ID: [id number]
--- NOTE | 2019-05-16 11:13 | ULT ---
US Renal Bilateral STANDARD: 05/16/2019 10:08 AM CLINICAL HISTORY: Renal failure. STUDY: Renal ultrasound COMPARISON: None. FINDINGS: Right kidney: Echogenicity: Normal. Masses/cysts: 2 cysts measuring up to 1.5 cm in size Hydronephrosis: None. Calcifications: Multiple shadowing calcifications Length: 10.1 cm Left kidney: Echogenicity: Normal. Masses/cysts: 2 cysts measuring up to 1.3 cm in size. Hydronephrosis: None. Calcifications: Multiple shadowing calcifications Length: 12.3 cm Limited visualization of the urinary bladder is unremarkable. Both ureteral jets were seen. IMPRESSION: 1. Bilateral nonobstructing renal calcifications 2. Bilateral renal cysts
[2019-05-16 13:12] VITALS: BMI 21.4
[2019-05-16 13:53] LABS: Bilirubin Negative (Negative); Blood, Urine Small (Negative); Clarity CLOUDY (Clear); Glucose, Urine (Dipstick) Negative (Negative); Leukocyte Small (Negative); Nitrite Negative (Negative); Protein, Urine (Dipstick) 30 mg/dL (Neg-Trace)
[2019-05-16 13:54] LABS: Hyaline Casts/LPF 4-6 HYALINE CAST LPF (0-3 Hyaline); Pathc Cast-AUWi Flag 0.68 (0-2.49); WBC/HPF 21-50 HPF (0-3)
[2019-05-16 14:09] LABS: Bacteria/HPF 1+ HPF (None Seen); Renal Epithelial None Seen HPF (0-3); Transitional Epithelial NONE SEEN HPF (0-3)
--- NOTE | 2019-05-16 20:04 | PDOC.PN ---
- Subjective Encounter Start Date: 05/16/19 Encounter Start Time: 20:04 Patient seen and examined for endocarditis. No dysuria/flank pain/hematuria. No new complaints. No overnight events - Objective Resuscitation Status - Order Detail: 05/07/19 14:32 Resuscitation Status Routine Resuscitation Status: FULL: Full Resuscitation MAR Reviewed: Yes Vital Signs & Weight: Vital Signs (12 hours) Temp Pulse Pulse Pulse Resp BP BP 05/16/19 16:00 97.2 F L 71 16 05/16/19 12:00 96.7 F L 61 16 05/16/19 10:15 72 63 110/54 L 98/57 L BP Pulse Ox Pulse Ox 05/16/19 16:00 124/59 L 05/16/19 12:00 108/59 L 05/16/19 10:15 100 100 Weight Admit Weight 181 lb 8 oz Weight 162 lb 4.8 oz I&O: 05/15/19 05/16/19 05/17/19 06:59 06:59 06:59 Intake Total 2520 3336 1412 Output Total 320 350 Balance 2200 3336 1062 Result Diagrams: 05/17/19 05:36 05/17/19 05:36 EKG Reviewed by me: Yes (Tele SR) Phys Exam - Physical Examination Constitutional: NAD Respiratory: no wheezing, no rhonchi Cardiovascular: RRR, no rub Gastrointestinal: soft, non-tender, positive bowel sounds Musculoskeletal: no edema Neurological: moves all 4 limbs Dx/Plan - Plan DVT proph w/SCDs IMPRESSION: 1. 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 2. Acute kidney injury on chronic kidney disease stage 2 3. Acute on chronic diastolic heart failure - improved 4. Paroxysmal atrial fibrillation. 5. 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 6. Dyslipidemia. 7. Hypertension. 8. Severe aortic regurgitation. 9. Moderate protein-calorie malnutrition. 10. Mild mitral regurgitation. 11. Nonobstructing bilateral renal calculi. 12. History of pacemaker placement. 13. Penicillin allergy. 14. Hypokalemia. 15. Hyponatremia. 16. Type 2 myocardial infarction/demand ischemia. 17. Coagulopathy of unclear etiology. 18. Elevated D-dimer with negative CT angiogram of the chest. 19. Chronic anemia. PLAN: Cont IVF Renal USG UA ACEI/Lasix on hold AM labs Cont Ampicillin and Rocephin - renal adjusted dosing for Endocarditis Cont other meds as below Review of Systems - Review of Systems Respiratory: negative: Cough, Dry, Shortness of Breath, Hemoptysis, SOB with Excertion, Pleuritic Pain, Sputum, Wheezing Cardiovascular: negative: chest pain, palpitations, orthopnea, paroxysmal nocturnal dyspnea, edema, light headedness, other Gastrointestinal: negative: Nausea, Vomiting, Abdominal Pain, Diarrhea, Constipation, Melena, Hematochezia, Other - Medications/Allergies Allergies/Adverse Reactions: Allergies Allergy/AdvReac Type Severity Reaction Status Date / Time Benzodiazepines Allergy Verified 05/07/19 13:19 Medications: Current Medications Acetaminophen (Tylenol) 650 mg PO Q4H PRN PRN Reason: Headache/Fever/Mild Pain (1-3) Last Admin: 05/07/19 20:35 Dose: 650 mg Aspirin (Aspirin Chewable) 81 mg PO DAILY [facility] Last Admin: 05/16/19 09:02 Dose: 81 mg Atorvastatin Calcium (Lipitor) 80 mg PO HS [facility] Last Admin: 05/15/19 21:15 Dose: 80 mg Bisacodyl (Dulcolax) 10 mg [place] DAILYPRN PRN PRN Reason: Constipation Carvedilol (Coreg) 3.125 mg PO BID [facility] Last Admin: 05/16/19 09:02 Dose: 3.125 mg Enoxaparin Sodium (Lovenox) 30 mg SC 0900 [facility] Last Admin: 05/16/19 09:02 Dose: 30 mg Famotidine (Pepcid) 20 mg PO DAILY [facility] Last Admin: 05/16/19 09:01 Dose: 20 mg Finasteride (Proscar) 5 mg PO DAILY [facility] Last Admin: 05/16/19 09:01 Dose: 5 mg Gabapentin (Neurontin) 300 mg PO BID [facility] Last Admin: 05/16/19 09:01 Dose: 300 mg Guaifenesin/Dextromethorphan (Robitussin Dm) 15 ml PO Q4H PRN PRN Reason: Cough Last Admin: 05/13/19 12:16 Dose: 15 ml Ceftriaxone Sodium 2 gm/ (Sodium Chloride) 100 mls @ 200 mls/hr IVPB Q12HR [facility] Last Admin: 05/16/19 09:03 Dose: 100 mls Ampicillin Sodium 2 gm/ Sodium (Chloride) 100 mls @ 200 mls/hr IVPB Q6HR [facility] Last Admin: 05/16/19 18:02 Dose: 100 mls Sodium Chloride (Normal Saline 0.9%) 1,000 mls @ 75 mls/hr IV .[id number] [facility] Last Admin: 05/16/19 05:26 Dose: 1,000 mls Lactulose (Lactulose) 30 gm PO BID [facility] Last Admin: 05/16/19 09:02 Dose: 30 gm Lisinopril (Zestril) 2.5 mg PO DAILY [facility] Last Admin: 05/13/19 08:18 Dose: 2.5 mg Miscellaneous Medication (Pharmacy To Dose) 1 each IVPB DAILYPRN PRN PRN Reason: Pharmacy to dose Senna/Docusate Sodium (Senokot S) 2 tab PO BID PRN PRN Reason: Constipation
[2019-05-16] MEDS: Atorvastatin Calcium 40 MG TAB PO SCH (20:49)
[2019-05-17] MEDS: Ampicillin 2 GM in Sodium Chloride 0.9% 100 ML IVPB SCH ×4 (05:53→23:54)
[2019-05-17 06:21] LABS: #Basophils 0.1 thou/uL (0.0-0.2); #Eosinphils 0.4 thou/uL (0.0-0.7); #Lymphocytes 1.7 thou/uL (1.20-3.40); #Monocytes 0.6 thou/uL (0.11-0.59); #Neutrophils 3.7 thou/uL (1.40-6.50); %Basophils 1.3 % (0.0-1.0); %Eosinophils 5.8 % (0.0-10.0); %Lymphocytes 25.9 % (21.0-51.0); %Monocytes 9.9 % (0.0-10.0); %Neutrophils 57.2 % (42.0-75.0); Hemoglobin 7.1 g/dL (14.0-18.0); Mean Corpuscular Volume 90.3 fL (78.0-98.0); Mean Platelet Volume 8.9 fL (7.4-10.4); Platelet Count 215 thou/uL (130-400); RBC Distribution Width 19.8 % (11.5-14.5); Red Blood Cell (RBC) Count 2.55 mill/uL (4.70-6.10); White Blood Cell (WBC) Count 6.5 thou/uL (4.8-10.8)
[2019-05-17 06:42] LABS: Anion Gap 11 mmol/L (10-20); BUN (Urea Nitrogen) 32 mg/dL (8.4-25.7); Calc. Creatinine Clearance 46 mL/min (70-130); Calcium 8.6 mg/dL (7.8-10.44); Carbon Dioxide 19 mmol/L (23-31); Chloride 110 mmol/L (98-107); Estimated GFR-MDRD 50; Glucose 87 mg/dL (83-110); Potassium 4.1 mmol/L (3.5-5.1); Sodium 136 mmol/L (136-145)
[2019-05-17 09:45] LABS: Reticulocyte Count 2.2 % (0.5-1.5)
[2019-05-17] MEDS: cefTRIAXone\\ROCEPHIN 2 GM in Sodium Chloride 0.9% 100 ML IVPB SCH ×2 (09:46→21:03)
[2019-05-17] MEDS: Aspirin Chewable 81 MG TAB PO SCH (09:47)
[2019-05-17] MEDS: Enoxaparin Sodium 30 MG/0.3 ML SYRINGE SC SCH (09:47)
[2019-05-17] MEDS: Carvedilol 3.125 MG TAB PO SCH ×2 (09:47→21:02)
--- NOTE | 2019-05-17 09:47 | PRG ---
DATE OF SERVICE: 05/17/2019 SUBJECTIVE: Mr. Mckeon is an 78-year-old white male, who was seen for an acute kidney injury with a creatinine of 1.69 mg%. His gentamicin was discontinued due to the fact that gentamicin-induced ATN was considered. However, he was also continued to be empirically volume repleted. Creatinine this morning is improved at 1.37. I did review the urinalysis and there is no evidence of any acute tubular necrosis. He did have some proteinuria. In addition, renal ultrasound did not show any obstruction. No new complaints today. OBJECTIVE: VITAL SIGNS: Blood pressure 122/58, heart rate 71, respiratory rate 17, temperature 98.5, and pulse ox 99%. GENERAL EXAM: Noted to be awake, alert, comfortable, not in distress. SKIN: Adequate turgor. HEENT: Pinkish conjunctivae. Anicteric sclerae. No neck mass. No carotid bruits. No JVD. CHEST: No deformities. LUNGS: Clear breath sounds. No wheezing. No crackles. HEART: Normal sinus rhythm. No murmur. No gallops. No rubs. ABDOMEN: Globular, soft, nontender. No masses. EXTREMITIES: No edema. No deformities. MEDICATIONS: Medications of May 17, 2019, reviewed. LABORATORY DATA: Laboratories of May 16, 2019, urinalysis shows protein of 30, RBC 11 to 20, WBC 21 to 50. No pigmented granular cast. Sodium 136, potassium 4.1, chloride 110, carbon dioxide 19, BUN 32, creatinine 1.37, calcium is 8.6. White count 6.5, hemoglobin 7.1. ASSESSMENT AND PLAN: 1. Anemia. Continue to observe p.r.n. blood transfusion. 2. Acute kidney injury - consider hemodynamically-mediated renal dysfunction, improved renal function with discontinuation of his ARB as well as the gentamicin. Agree with current management. Continue IV fluids. There is no indication for any dialytic intervention with this patient. We will recheck basic metabolic panel and CBC in the morning. Job ID: [id number]
[2019-05-17] MEDS: Finasteride 5 MG TAB PO SCH (09:48)
[2019-05-17] MEDS: Gabapentin 300 MG CAP PO SCH ×2 (09:48→21:02)
[2019-05-17] MEDS: Famotidine 20 MG TAB PO SCH (09:48)
[2019-05-17 10:06] LABS: Iron 70 ug/dL (65-175); Iron Binding Capacity, Total 220 mcg/dL (261-462)
[2019-05-17] MEDS ORDERED: Pantoprazole 40 MG VIAL IVP SCH (11:15)
--- NOTE | 2019-05-17 11:45 | PRG ---
DATE OF SERVICE: 05/17/2019 SUBJECTIVE: The patient is an 78-year-old male, inmate, presented to this facility on 07 May 2019 with shortness of breath. 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 He was started on ampicillin and gentamicin. He then developed acute kidney injury, probably from gentamicin. Gentamicin was discontinued. Instead of gentamicin, he was put on ampicillin and ceftriaxone per Infectious Disease. He underwent echocardiogram and transesophageal echocardiogram this admission. The patient had dark tarry stool last night. He feels generally weak and fatigued. No chest pain or shortness of breath reported. He denies any nausea, vomiting, or abdominal discomfort. CURRENT MEDICATIONS: Reviewed. The patient is on: 1. Ampicillin. 2. Ceftriaxone. 3. Aspirin. 4. Lovenox. 5. Lipitor. 6. Carvedilol. 7. Pepcid. 8. Finasteride. 9. Gabapentin. 10. Lactulose. 11. Lisinopril. PHYSICAL EXAMINATION: GENERAL: An 78-year-old male, in no apparent distress. LUNGS: Clear to auscultation bilaterally with diminished air entry at bases. No accessory muscle use. No wheezing or rhonchi. HEART: S1 and S2 present. Regular rate and rhythm. No rubs or gallops appreciated. No heaves or pulsation. ABDOMEN: Soft, nontender. Bowel sounds present. No rebound or guarding. No costovertebral angle tenderness. EXTREMITIES: No edema or calf tenderness. PSYCHIATRY: Normal affect. The patient is alert, awake, and oriented x3. NEUROLOGIC: Grossly nonfocal. IMAGING DATA: Chest x-ray on admission by my review was negative for infiltrate. CT dissection protocol by my review showed nonobstructing bilateral renal calculi with bilateral renal cysts. Renal ultrasound yesterday showed bilateral nonobstructing renal calcification with bilateral renal cysts. IMPRESSION: 1. 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 2. Acute kidney injury on chronic kidney disease stage 2 probably secondary to gentamicin. 3. Anemia with dark tarry stool last night. His hemoglobin is down to 7.1 from 7.9. 4. History of cirrhosis. 5. Paroxysmal atrial fibrillation, not an anticoagulation candidate. 6. Acute on chronic diastolic heart failure earlier during this hospitalization. 7. Dyslipidemia. 8. Hypertension. 9. Severe aortic regurgitation. 10. Moderate protein-calorie malnutrition. 11. Mild mitral regurgitation. 12. Nonobstructing bilateral renal calculi. 13. Bilateral renal cysts. 14. History of pacemaker placement. 15. Hypokalemia, replaced. 16. Hyponatremia, replaced. 17. Elevated troponin secondary to type 2 myocardial infarction/demand ischemia. 18. Coagulopathy probably secondary to cirrhosis. 19. Chronic anemia with suspected anemia secondary to gastrointestinal blood loss. PLAN: We will reduce IV fluids to KVO for now. We will recheck H and H later today. We will hold aspirin and Lovenox. We will start IV PPIs. Consult Gastroenterology Service. Recheck labs in a.m. We will check PT/INR and PTT. We will type and screen. We will check orthostatic vital. We will continue antibiotics for endocarditis per Infectious Disease. We will continue other medications. Plan was discussed with the patient in detail. He stated understanding. We will continue telemetry monitoring for now. Job ID: [id number]
[2019-05-17] MEDS: Sodium Chloride 0.9% 1,000 ML IV SCH (12:16)
[2019-05-17 12:32] LABS: Hemoglobin 7.3 g/dL (14.0-18.0)
[2019-05-17 12:36] LABS: INR-International Normal Ratio 1.3; Prothrombin Time 16.7 SEC (12.0-14.7)
[2019-05-17 12:37] LABS: PTT 53.4 SEC (22.9-36.1)
[2019-05-17] MEDS: Atorvastatin Calcium 40 MG TAB PO SCH (21:02)
[2019-05-17] MEDS: Pantoprazole 40 MG VIAL IVP SCH (21:03)
--- NOTE | 2019-05-17 23:54 | CON ---
DATE OF CONSULTATION: 05/17/2019 REASON FOR CONSULTATION: Anemia, possible GI bleed. CONSULTING PHYSICIAN: Anders Perea MD. HISTORY OF PRESENT ILLNESS: The patient is an 78-year-old male with past medical history of paroxysmal atrial fibrillation, hypertension, chronic venous insufficiency, CHF and prior alcoholism with possible cirrhosis on imaging, who initially presented to the hospital for progressively worsening dyspnea on exertion and chronic cough. During the course of this hospitalization, he had an echocardiogram performed, which showed significant vegetations on the aortic valve consistent with endocarditis and blood cultures growing Enterococcus faecalis. He has been subsequently placed on appropriate antibiotic therapy. However, during the course of this hospitalization, he has been having a slowly downtrending H and H and did have the appearance of a darker colored stool yesterday per nursing staff concerning for GI bleeding. Upon interviewing the patient today, he states that he is doing well with no complaints or problems. He did state that for the last 2 bowel movements, he has had dark brown bowel movements rather than black in coloration and has had approximately 2 bowel movements within the last 3 to 5 days. Other than that, he denies any episodes of hematemesis or hematochezia. He also denies any current abdominal pain, nausea, vomiting, fevers, chills, diarrhea, or constipation. REVIEW OF SYSTEMS: A 10-category review of systems was obtained with all responses negative except for the pertinent positives as listed in HPI. PAST MEDICAL HISTORY: As per HPI. PAST SURGICAL HISTORY: Cataract surgery, AICD placement in 2014. FAMILY HISTORY: Denies any family history of GI malignancies. SOCIAL HISTORY: Denies any tobacco, alcohol, or illicit drug use, although the patient is currently incarcerated. Upon further questioning, he did have a history of heavy alcohol use for nearly 50 years, drinking approximately 1 pint of Tequila daily. INPATIENT MEDICATIONS: Reviewed. ALLERGIES: BENZODIAZEPINE, ONIONS, PENICILLIN. PHYSICAL EXAMINATION: VITAL SIGNS: Temperature 97.3, pulse 68, blood pressure 113/56, respiratory rate 16, saturating 98% on room air. GENERAL: The patient was lying in bed, in no acute distress. Alert and oriented x4. HEENT: Normocephalic, atraumatic. NECK: Supple. No JVD or scleral icterus noted. CARDIOVASCULAR: 3/6 systolic murmur best heard at the right upper sternal border without any discernible gallops or rubs. RESPIRATORY: Clear to auscultation bilaterally with no discernible wheezes or rales. ABDOMEN: Normoactive bowel sounds. Soft, nontender, nondistended. EXTREMITIES: No cyanosis, clubbing, or edema. LABORATORY DATA: CBC with a white blood cell count of 6.5, hemoglobin 7.1, hematocrit 23, platelets 215, MCV 90, RDW 19. Chemistry with a sodium of 136, potassium 4.1, chloride 110, CO2 of 19, BUN 32, creatinine 1.37, glucose 87. Iron 70, ferritin 312, TIBC 220. IMAGING DATA: CT dissection protocol was obtained on May 07, 2019, which showed global cardiomegaly with the pacemaker tip within the right ventricle. There was prominent mediastinal lymph nodes, small and atrophic kidneys with subcentimeter hypodensities likely cystic lesions within the kidneys as well as a 6.3 cm cystic lesion within the spleen. However, there was a slightly nodular appearance to the liver concerning for cirrhosis. ASSESSMENT AND PLAN: The patient is an 78-year-old male with past medical history of paroxysmal atrial fibrillation, hypertension, chronic venous insufficiency, congestive heart failure, history of prior alcoholism with imaging concerning for cirrhosis, presenting with continued anemia, with his iron indices consistent with anemia of chronic disease. Anemia of chronic disease/renal disease. The patient is presenting with a history of anemia with his current H and H downtrending during the course of this admission. No additional labs are available for review to properly trend out his anemia over time; however. Fortunately during this admission, iron indices were obtained that showed a normal iron, normal ferritin, but a low TIBC, which makes his anemia more likely anemia of chronic disease or renal disease, with the chronic disease more likely given his decent renal function. At this time, he does not endorse any evidence of overt GI bleeding with hematemesis, melena, or hematochezia, and his anemia or rather downtrending anemia at this time is probably more iatrogenic given the frequency of blood draws obtained during this admission. RECOMMENDATIONS: 1. We would continue to trend H and H and transfuse as necessary to maintain an H and H of 06/12. 2. Continue to monitor clinically for signs of active GI bleeding. 3. We will hold on any endoscopic management at this time given the lack of evidence of overt GI bleeding and iron indices consistent with chronic disease. 4. Cirrhotic morphology on imaging. 5. The patient is presenting with a prior history of chronic alcoholism for which the patient was drinking approximately 1 pint of Tequila daily for the last 50 years (per chart review). On admission, he did have a CT dissection protocol, which did visualize the liver to a certain degree and noted a slightly nodular contour concerning for cirrhosis. However, given his very normal platelet count and lack of splenomegaly on CT scan as well, the likelihood of cirrhosis at this time is well less likely. Upon review of his transaminases, he does have a mildly elevated AST at this time, but when looking at his synthetic function, his bilirubin is normal, indicating adequate liver function. At this time, he might have an element of cirrhosis, but it is difficult to tell and would be more properly evaluated as an outpatient. RECOMMENDATIONS: 1. Upon discharge, we would have the patient follow up in the GI Clinic as an outpatient for further evaluation of possible cirrhosis, but no further recommendations at this time given normal synthetic function. 2. We will continue to follow, please call with any questions. Job ID: [id number]
[2019-05-18] MEDS: Ampicillin 2 GM in Sodium Chloride 0.9% 100 ML IVPB SCH ×3 (05:34→17:03)
[2019-05-18 06:26] LABS: #Eosinphils 0.4 thou/uL (0.0-0.7); #Lymphocytes 1.9 thou/uL (1.20-3.40); #Monocytes 0.8 thou/uL (0.11-0.59); #Neutrophils 3.9 thou/uL (1.40-6.50); %Basophils 0.5 % (0.0-1.0); %Eosinophils 5.8 % (0.0-10.0); %Neutrophils 55.7 % (42.0-75.0); Hemoglobin 7.3 g/dL (14.0-18.0); Mean Corpuscular HGB CONC 30.5 g/dL (32.0-36.0); Mean Corpuscular Hemoglobin 27.5 pg (27.0-31.0); Mean Platelet Volume 8.6 fL (7.4-10.4); Platelet Count 207 thou/uL (130-400); RBC Distribution Width 19.9 % (11.5-14.5); Red Blood Cell (RBC) Count 2.67 mill/uL (4.70-6.10); White Blood Cell (WBC) Count 6.9 thou/uL (4.8-10.8)
[2019-05-18 08:08] LABS: Anion Gap 12 mmol/L (10-20); BUN (Urea Nitrogen) 30 mg/dL (8.4-25.7); Calc. Creatinine Clearance 47 mL/min (70-130); Calcium 8.5 mg/dL (7.8-10.44); Carbon Dioxide 17 mmol/L (23-31); Chloride 112 mmol/L (98-107); Estimated GFR-MDRD 52; Glucose 85 mg/dL (83-110); Potassium 4.3 mmol/L (3.5-5.1); Sodium 137 mmol/L (136-145)
[2019-05-18] MEDS: Carvedilol 3.125 MG TAB PO SCH ×2 (09:06→21:08)
[2019-05-18] MEDS: Finasteride 5 MG TAB PO SCH (09:06)
[2019-05-18] MEDS: Gabapentin 300 MG CAP PO SCH ×2 (09:06→21:08)
[2019-05-18] MEDS: cefTRIAXone\\ROCEPHIN 2 GM in Sodium Chloride 0.9% 100 ML IVPB SCH ×2 (09:06→21:08)
[2019-05-18] MEDS: Sodium Chloride 0.9% 1,000 ML IV SCH (09:07)
[2019-05-18] MEDS: Pantoprazole 40 MG VIAL IVP SCH (09:07)
--- NOTE | 2019-05-18 09:47 | PRG ---
DATE OF SERVICE: 05/18/2019 SERVICE: Renal Medicine. SUBJECTIVE: Mr. Mckeon is an 78-year-old white male, who was seen for his acute kidney injury. Initially, consideration for ATN from gentamicin was considered. This was discontinued. At the same time, his ARB was also discontinued. His renal function has been slowly improving with gentle volume repletion and discontinuation of the offending agents. He most likely has a hemodynamically-mediated renal dysfunction. The patient has no new complaints. No chest pain or shortness of breath. OBJECTIVE: VITAL SIGNS: Blood pressure 145/63, heart rate 62, respiratory rate 18, temperature 97.9, pulse ox 100%. GENERAL: The patient is awake, alert, comfortable, not in distress. SKIN: Adequate turgor. HEENT: He has a slightly pale conjunctivae. Anicteric sclerae. NECK: No neck mass. No carotid bruits. No JVD. CHEST: No deformities. LUNGS: Clear breath sounds. No wheezing. No crackles. HEART: Normal sinus rhythm. No murmurs, gallops, or rubs. ABDOMEN: Globular, soft, nontender. No masses. EXTREMITIES: No edema. No deformities. MEDICATIONS: Medications of May 18, 2019, was reviewed. LABORATORY DATA: Laboratories of May 18, 2019, white count 6.9, hemoglobin 7.3. Sodium 137, potassium 4.3, chloride 112, carbon dioxide 17, BUN 30, creatinine 1.33, GFR 52 mL/minute. Ferritin was 312, iron 70, TIBC 220. ASSESSMENT AND PLAN: 1. Anemia. Supportive management. P.r.n. blood transfusion. 2. Acute kidney injury-consider hemodynamically-mediated renal dysfunction. Slowly improving renal function with gentle volume repletion. He is off his ARB/VEE inhibitors. Continue supportive care. There is no indication for any dialytic intervention. We will recheck CBC, basic metabolic profile tomorrow. Job ID: [id number]
--- NOTE | 2019-05-18 18:08 | PRG ---
DATE OF SERVICE: 05/18/2019 REASON FOR CONSULTATION: Anemia, possible GI bleed. SUBJECTIVE: Today, the patient states that he is doing well with no acute events or problems overnight. He did state that he did have a formed bowel movement yesterday evening that was dark brown in coloration, but not black and easily wiped away. Otherwise, he denies any abdominal pain, nausea, vomiting, fevers, chills, diarrhea, or constipation. OBJECTIVE: VITAL SIGNS: Temperature 97.8, pulse 63, blood pressure 120/57, respiratory rate 18, saturating 96% on room air. GENERAL: The patient is lying in bed, in no acute distress. Alert and oriented x4. CARDIOVASCULAR: 3/6 systolic murmur best heard at the right upper sternal border without any discernible gallops or rubs. RESPIRATORY: Clear to auscultation bilaterally. ABDOMEN: Normoactive bowel sounds. Soft, nontender, nondistended. EXTREMITIES: No cyanosis, clubbing, or edema. LABORATORY DATA: CBC with a white blood cell count of 6.9, hemoglobin 7.3, hematocrit 24, platelets 207. Chemistry; sodium 137, potassium 4.3, chloride 112, CO2 of 17, BUN 30, creatinine 1.33, glucose 85. IMAGING DATA: No current GI imaging is available for review. ASSESSMENT AND PLAN: The patient is an 78-year-old male with past medical history of paroxysmal atrial fibrillation, hypertension, chronic venous insufficiency, congestive heart failure, history of prior alcoholism with imaging concerning for cirrhosis, presenting with anemia of chronic disease. Anemia of chronic disease/renal disease. The patient initially presented with a history of anemia with a decreased H and H on admission. However, during this admission, iron indices were obtained showing a normal iron, normal ferritin and low TIBC, making anemia of chronic disease a more likely diagnosis and etiology for his current anemia. At this time, he does not endorse any evidence of overt GI bleeding with lack of hematemesis, melena, or hematochezia. At this time, the likelihood of his downtrending H and H during this hospitalization is either iatrogenic given the frequency of blood draws or sequelae of his anemia of chronic disease. RECOMMENDATIONS: 1. We would continue to trend H and H and transfuse as necessary to maintain his H and H of 7/21. 2. Continue to monitor clinically for signs of active GI bleeding. 3. We would attempt to minimize lab draws as it could be further worsening his H and H. We will sign off at this time. Please call with any additional questions. Job ID: [id number]
--- NOTE | 2019-05-18 18:17 | PDOC.PN ---
- Subjective Encounter Start Date: 05/18/19 (f/u endocarditis) Encounter Start Time: 18:16 Subjective: Pt c/o feet feeling cold and pain that radiates up legs - states -: it has been going on for quite a while. Both feet/legs. Denies -: any cp/sob/n/v/abd pain/diarrhea - Objective Resuscitation Status - Order Detail: 05/07/19 14:32 Resuscitation Status Routine Resuscitation Status: FULL: Full Resuscitation Vital Signs & Weight: Vital Signs (12 hours) Temp Pulse Resp BP BP BP Pulse Ox 05/18/19 15:43 97.8 F 63 18 120/57 L 96 05/18/19 11:35 97.7 F 66 18 102/52 L 99 05/18/19 07:11 97.9 F 62 18 145/63 H 134/56 L 128/60 100 Weight Admit Weight 181 lb 8 oz Weight 167 lb 1.6 oz I&O: 05/17/19 05/18/19 05/19/19 06:59 06:59 06:59 Intake Total 2983 2221 Output Total 350 500 Balance 2633 1721 Result Diagrams: 05/18/19 06:15 05/18/19 07:41 EKG Reviewed by me: Yes (tele - v paced 60-80's) Phys Exam - Physical Examination Constitutional: NAD Respiratory: no wheezing, no rales, no rhonchi, clear to auscultation bilateral Cardiovascular: RRR, no significant murmur Gastrointestinal: soft, non-tender, no distention, positive bowel sounds Musculoskeletal: no edema 2+ PT pulse in right foot, 1+ PT pulse in left foot both feet warm Psychiatric: normal affect Dx/Plan (1) RODNEY (acute kidney injury) Code(s): N17.9 - ACUTE KIDNEY FAILURE, UNSPECIFIED Status: Acute (2) Infective endocarditis Code(s): I33.0 - ACUTE AND SUBACUTE INFECTIVE ENDOCARDITIS Status: Acute Qualifiers: Infective endocarditis organism: bacterial (3) Vegetation of heart valve Code(s): I33.0 - ACUTE AND SUBACUTE INFECTIVE ENDOCARDITIS Status: Acute (4) Chronic anemia Code(s): D64.9 - ANEMIA, UNSPECIFIED Status: Chronic (5) Cirrhosis of liver Code(s): K74.60 - UNSPECIFIED CIRRHOSIS OF LIVER Status: Chronic Qualifiers: Hepatic cirrhosis type: alcoholic cirrhosis Ascites presence: without ascites Qualified Code(s): K70.30 - Alcoholic cirrhosis of liver without ascites Comment: stable - Plan * Bacteremia/endocarditis secondary to enterococcus * Appreciate ID consult - abx through end may. Need to determine which combination with ampicillin - will be based on renal function * RODNEY with CKD = appreciate Nephrology consult - gentle IVF hydration * Anemia - chronic - appreciate GI consult, no work-up intended as no signs of active bleeding. Will continue to monitor with goal Hb >7. * Parox A Fib - not a candidate for anti-coagulation * Foot/leg complaints - suspect peripheral neuropathy which may be related ot the hx of significant alcohol use - pt is on gabapentin. Will check vit b12/ folate levels in AM * * recheck renal function in AM * * dvt prophy - ambulatory * gi prophy - not indicated * code status full * * anticipate when abx type are determined that we can proceed with discharge planning - where/how pt will receive abx.
[2019-05-18] MEDS: Atorvastatin Calcium 40 MG TAB PO SCH (21:08)
[2019-05-19] MEDS: Ampicillin 2 GM in Sodium Chloride 0.9% 100 ML IVPB SCH ×6 (00:48→23:16)
[2019-05-19 06:47] LABS: #Eosinphils 0.3 thou/uL (0.0-0.7); #Lymphocytes 1.5 thou/uL (1.20-3.40); #Monocytes 0.3 thou/uL (0.11-0.59); #Neutrophils 2.7 thou/uL (1.40-6.50); %Basophils 0.3 % (0.0-1.0); %Eosinophils 6.6 % (0.0-10.0); %Lymphocytes 30.9 % (21.0-51.0); %Monocytes 6.3 % (0.0-10.0); %Neutrophils 55.9 % (42.0-75.0); Hemoglobin 6.9 g/dL (14.0-18.0); Mean Corpuscular HGB CONC 31.2 g/dL (32.0-36.0); Mean Corpuscular Hemoglobin 28.3 pg (27.0-31.0); Platelet Count 209 thou/uL (130-400); RBC Distribution Width 20.1 % (11.5-14.5); Red Blood Cell (RBC) Count 2.43 mill/uL (4.70-6.10); White Blood Cell (WBC) Count 4.8 thou/uL (4.8-10.8)
[2019-05-19 07:06] LABS: Anion Gap 10 mmol/L (10-20); BUN (Urea Nitrogen) 31 mg/dL (8.4-25.7); Calc. Creatinine Clearance 53 mL/min (70-130); Carbon Dioxide 21 mmol/L (23-31); Chloride 112 mmol/L (98-107); Estimated GFR-MDRD 57; Glucose 82 mg/dL (83-110); Potassium 3.9 mmol/L (3.5-5.1); Sodium 139 mmol/L (136-145)
[2019-05-19 08:02] LABS: Folate (Folic Acid) 4.1 ng/mL (7.0-31.4)
[2019-05-19] MEDS: cefTRIAXone\\ROCEPHIN 2 GM in Sodium Chloride 0.9% 100 ML IVPB SCH ×2 (08:12→20:16)
[2019-05-19] MEDS: Gabapentin 300 MG CAP PO SCH ×3 (08:15→20:16)
[2019-05-19] MEDS: Finasteride 5 MG TAB PO SCH (08:15)
[2019-05-19] MEDS: Carvedilol 3.125 MG TAB PO SCH ×2 (08:15→20:15)
--- NOTE | 2019-05-19 09:36 | PRG ---
DATE OF SERVICE: 05/19/2019 SERVICE: Renal Medicine. SUBJECTIVE: Mr. Mckeon is an 78-year-old white male, who was seen by the Renal Service for his acute kidney injury. Initially, a consideration for ATN from gentamicin was considered. Empiric volume repletion was done and his ARB/VEE inhibitor was discontinued. Renal function continued to slowly improve over time. This morning, his creatinine is much improved at a value of 1.22. GFR is 57 mL/minute. No other complaints. No chest pain or shortness of breath. In addition, the patient is being followed up by the GI Service due to the anemia and possible GI bleed. OBJECTIVE: VITAL SIGNS: Blood pressure is 126/66, heart rate 61, respiratory rate 17, temperature 97.6, and pulse ox 96%. GENERAL: Awake, alert, comfortable, not in distress. SKIN: Adequate turgor. HEENT: Pale conjunctivae. Anicteric sclerae. NECK: No neck mass. No carotid bruits. No JVD. CHEST: No deformities. LUNGS: Clear breath sounds. No wheezing. No crackles. HEART: Normal sinus rhythm. No murmurs. No gallops. No rubs. ABDOMEN: Globular, soft, and nontender. No masses. EXTREMITIES: No edema. No deformities. MEDICATIONS: Laboratories of May 19, 2019, was reviewed. LABORATORY DATA: Laboratories of May 19, 2019; sodium 139, potassium 3.9, chloride 112, carbon dioxide 21, BUN 31, creatinine 1.22, glucose 82, and calcium 9.0. Folate 4.1, vitamin B12 of 617. White count 4.8, hemoglobin 6.9. ASSESSMENT AND PLAN: 1. Acute kidney injury - consider hemodynamically-mediated renal dysfunction. Urine sediment did not suggest acute tubular necrosis. Continue current management. There is no indication for any dialytic intervention. 2. Anemia. P.r.n. blood transfusion. Due to the much improved renal function, we will be signing off. Please recall if needed. Job ID: [id number]
[2019-05-19] MEDS: Sodium Chloride 0.9% 1,000 ML IV SCH (10:00)
--- NOTE | 2019-05-19 13:57 | PDOC.PN ---
- Subjective Encounter Start Date: 05/19/19 (f/u endocarditis) Encounter Start Time: 13:54 Subjective: Pt c/o left foot pain and leg pain constant today, same pain that has -: been ongoing for months. Denies any cp/sob/other concerns - Objective Resuscitation Status - Order Detail: 05/07/19 14:32 Resuscitation Status Routine Resuscitation Status: FULL: Full Resuscitation Vital Signs & Weight: Vital Signs (12 hours) Temp Pulse Resp BP BP Pulse Ox 05/19/19 08:00 96 05/19/19 07:39 97.6 F 61 17 126/66 96 05/19/19 04:00 97.3 F L 75 16 133/74 97 Weight Admit Weight 181 lb 8 oz Weight 171 lb 9 oz I&O: 05/18/19 05/19/19 05/20/19 06:59 06:59 06:59 Intake Total 2221 2790 600 Output Total 500 2350 Balance 1721 440 600 Result Diagrams: 05/19/19 06:17 05/19/19 06:17 Phys Exam - Physical Examination Constitutional: NAD left pupil larger than right (pt reports hx of cataract removal) Respiratory: no wheezing, no rales, no rhonchi, clear to auscultation bilateral Cardiovascular: RRR, no significant murmur Gastrointestinal: soft, non-tender, no distention, positive bowel sounds Musculoskeletal: no edema 1+ pt pulse left foot, warm Neurological: non-focal Psychiatric: normal affect Dx/Plan (1) RODNEY (acute kidney injury) Code(s): N17.9 - ACUTE KIDNEY FAILURE, UNSPECIFIED Status: Resolved (2) Infective endocarditis Code(s): I33.0 - ACUTE AND SUBACUTE INFECTIVE ENDOCARDITIS Status: Acute Qualifiers: Infective endocarditis organism: bacterial (3) Vegetation of heart valve Code(s): I33.0 - ACUTE AND SUBACUTE INFECTIVE ENDOCARDITIS Status: Acute (4) Chronic anemia Code(s): D64.9 - ANEMIA, UNSPECIFIED Status: Chronic (5) Cirrhosis of liver Code(s): K74.60 - UNSPECIFIED CIRRHOSIS OF LIVER Status: Chronic Qualifiers: Hepatic cirrhosis type: alcoholic cirrhosis Ascites presence: without ascites Qualified Code(s): K70.30 - Alcoholic cirrhosis of liver without ascites Comment: stable - Plan * * Bacteremia/endocarditis secondary to enterococcus * Appreciate ID consult - abx through end may. Need to determine which combination with ampicillin - will be based on renal function. Will check with Dr. Swan to start discharge planning. * Rocephin 2 grams Q12h + ampicillin 2 grams Q4h with weekly cbc and cmp * RODNEY with CKD = appreciate Nephrology consult - Dr. Miles signed off, will d/c IVF * * Anemia - chronic - appreciate GI consult, no work-up intended as no signs of active bleeding. * Hb 6.9 - will transfuse 1 unit prbc, I reviewed risks/benefits with patient * Parox A Fib - not a candidate for anti-coagulation * Foot/leg complaints - suspect peripheral neuropathy which may be related ot the hx of significant alcohol use * Folate level low - start supplement * increase gabapentin to TID * * recheck renal function daily * * dvt prophy - ambulatory * gi prophy - not indicated * code status full * * anticipate when abx type are determined that we can proceed with discharge planning - where/how pt will receive abx. .
[2019-05-19] MEDS ORDERED: Folic Acid 1 MG TAB PO SCH (14:00)
[2019-05-19] MEDS: Atorvastatin Calcium 40 MG TAB PO SCH (20:14)
[2019-05-20] MEDS: Ampicillin 2 GM in Sodium Chloride 0.9% 100 ML IVPB SCH ×4 (05:33→19:47)
[2019-05-20 05:52] LABS: #Eosinphils 0.3 thou/uL (0.0-0.7); #Lymphocytes 1.5 thou/uL (1.20-3.40); #Monocytes 0.5 thou/uL (0.11-0.59); #Neutrophils 3.5 thou/uL (1.40-6.50); %Basophils 0.3 % (0.0-1.0); %Eosinophils 4.3 % (0.0-10.0); %Lymphocytes 26.4 % (21.0-51.0); %Monocytes 8.5 % (0.0-10.0); %Neutrophils 60.5 % (42.0-75.0); Hemoglobin 7.4 g/dL (14.0-18.0); Mean Corpuscular HGB CONC 30.4 g/dL (32.0-36.0); Mean Corpuscular Hemoglobin 27.4 pg (27.0-31.0); Mean Corpuscular Volume 89.9 fL (78.0-98.0); Mean Platelet Volume 8.6 fL (7.4-10.4); Platelet Count 201 thou/uL (130-400); RBC Distribution Width 19.8 % (11.5-14.5); White Blood Cell (WBC) Count 5.8 thou/uL (4.8-10.8)
[2019-05-20 06:12] LABS: Anion Gap 13 mmol/L (10-20); BUN (Urea Nitrogen) 33 mg/dL (8.4-25.7); Calc. Creatinine Clearance 52 mL/min (70-130); Calcium 8.9 mg/dL (7.8-10.44); Carbon Dioxide 19 mmol/L (23-31); Chloride 111 mmol/L (98-107); Estimated GFR-MDRD 56; Glucose 90 mg/dL (83-110); Potassium 4.7 mmol/L (3.5-5.1); Sodium 138 mmol/L (136-145)
[2019-05-20] MEDS: Gabapentin 300 MG CAP PO SCH ×3 (09:14→19:47)
[2019-05-20] MEDS: Folic Acid 1 MG TAB PO SCH (09:14)
[2019-05-20] MEDS: Carvedilol 3.125 MG TAB PO SCH ×2 (09:14→19:47)
[2019-05-20] MEDS: cefTRIAXone\\ROCEPHIN 2 GM in Sodium Chloride 0.9% 100 ML IVPB SCH ×2 (09:14→19:47)
[2019-05-20] MEDS: Finasteride 5 MG TAB PO SCH (09:14)
[2019-05-20] MEDS ORDERED: Clopidogrel Bisulfate 75 MG TAB ONE (16:58)
--- NOTE | 2019-05-20 18:09 | PDOC.PN ---
- Subjective Encounter Start Date: 05/20/19 (f/u bacteremia) Encounter Start Time: 18:06 Subjective: Pt without any new complaints today. Feet feel numb, reports improvement -: when he walks around and stands up. Denies any n/v/abd pain. - Objective Resuscitation Status - Order Detail: 05/07/19 14:32 Resuscitation Status Routine Resuscitation Status: FULL: Full Resuscitation Vital Signs & Weight: Vital Signs (12 hours) Temp Pulse Resp BP Pulse Ox 05/20/19 08:00 96 05/20/19 07:56 97.5 F L 63 18 123/67 96 Weight Admit Weight 181 lb 8 oz Weight 172 lb 6.424 oz I&O: 05/19/19 05/20/19 05/21/19 06:59 06:59 06:59 Intake Total 2790 1760 480 Output Total 2350 1950 Balance 440 -190 480 Result Diagrams: 05/20/19 05:41 05/20/19 05:41 Phys Exam - Physical Examination Constitutional: NAD unchanged anisocoria - left larger than right Respiratory: no wheezing, no rales, no rhonchi, clear to auscultation bilateral Cardiovascular: RRR, no significant murmur Gastrointestinal: soft, non-tender, no distention, positive bowel sounds Musculoskeletal: no edema Psychiatric: normal affect Dx/Plan (1) RODNEY (acute kidney injury) Code(s): N17.9 - ACUTE KIDNEY FAILURE, UNSPECIFIED Status: Resolved (2) Infective endocarditis Code(s): I33.0 - ACUTE AND SUBACUTE INFECTIVE ENDOCARDITIS Status: Acute Qualifiers: Infective endocarditis organism: bacterial (3) Vegetation of heart valve Code(s): I33.0 - ACUTE AND SUBACUTE INFECTIVE ENDOCARDITIS Status: Acute (4) Chronic anemia Code(s): D64.9 - ANEMIA, UNSPECIFIED Status: Chronic (5) Cirrhosis of liver Code(s): K74.60 - UNSPECIFIED CIRRHOSIS OF LIVER Status: Chronic Qualifiers: Hepatic cirrhosis type: alcoholic cirrhosis Ascites presence: without ascites Qualified Code(s): K70.30 - Alcoholic cirrhosis of liver without ascites Comment: stable - Plan * * Bacteremia/endocarditis secondary to enterococcus * Appreciate ID consult - abx through end may. * Rocephin 2 grams Q12h + ampicillin 2 grams Q4h with weekly cbc and cmp - filled out med rec and CM working on this and where it will occur * RODNEY with CKD resolved - Dr. Miles signed off * * Anemia - chronic - appreciate GI consult, no work-up intended as no signs of active bleeding. * s/p 1 unit prbc yesterday. Will continue to check daily * Parox A Fib - not a candidate for anti-coagulation * Foot/leg complaints - suspect peripheral neuropathy which may be related ot the hx of significant alcohol use * Folate level low - supplement started * gabapentin increased to TID * * change labs to every other day to avoid contributing to anemia * * dvt prophy - ambulatory * gi prophy - not indicated * code status full * * ready for discharge when placement is arranged for patient to receive antibiotics. ..
[2019-05-20] MEDS: Atorvastatin Calcium 40 MG TAB PO SCH (19:47)
[2019-05-21] MEDS: Ampicillin 2 GM in Sodium Chloride 0.9% 100 ML IVPB SCH ×6 (00:04→20:20)
[2019-05-21] MEDS: cefTRIAXone\\ROCEPHIN 2 GM in Sodium Chloride 0.9% 100 ML IVPB SCH ×2 (08:51→20:20)
[2019-05-21] MEDS: Gabapentin 300 MG CAP PO SCH ×3 (08:52→20:20)
[2019-05-21] MEDS: Carvedilol 3.125 MG TAB PO SCH ×2 (08:52→20:20)
[2019-05-21] MEDS: Finasteride 5 MG TAB PO SCH (08:52)
[2019-05-21] MEDS: Folic Acid 1 MG TAB PO SCH (08:52)
[2019-05-21] MEDS ORDERED: Methyl Salicylate/Menthol 85 GM TUBE TOP PRN (13:54)
[2019-05-21] MEDS ORDERED: traMADol HCl 50 MG TAB PO PRN (13:54)
--- NOTE | 2019-05-21 13:57 | PDOC.PN ---
- Subjective Encounter Start Date: 05/21/19 (f/u endocarditis) Encounter Start Time: 13:55 Subjective: Pt reports leg pain persists, aching, rates it 5/10 in severity, at times -: better and worse. Denies any other problems today. RN reports he -: refuses the night dose of lactulose - willing to take the day dose - Objective Resuscitation Status - Order Detail: 05/07/19 14:32 Resuscitation Status Routine Resuscitation Status: FULL: Full Resuscitation Vital Signs & Weight: Vital Signs (12 hours) Temp Pulse Resp BP Pulse Ox 05/21/19 08:00 97.7 F 62 20 137/62 96 Weight Admit Weight 181 lb 8 oz Weight 172 lb 6.424 oz I&O: 05/20/19 05/21/19 05/22/19 06:59 06:59 06:59 Intake Total 1760 1600 480 Output Total 1950 1750 Balance -190 -150 480 Result Diagrams: 05/20/19 05:41 05/20/19 05:41 Phys Exam - Physical Examination Constitutional: NAD Respiratory: no wheezing, no rales, no rhonchi, clear to auscultation bilateral Cardiovascular: RRR, no significant murmur Gastrointestinal: soft, non-tender, no distention, positive bowel sounds Musculoskeletal: no edema Neurological: non-focal Psychiatric: normal affect Dx/Plan (1) RODNEY (acute kidney injury) Code(s): N17.9 - ACUTE KIDNEY FAILURE, UNSPECIFIED Status: Resolved (2) Infective endocarditis Code(s): I33.0 - ACUTE AND SUBACUTE INFECTIVE ENDOCARDITIS Status: Acute Qualifiers: Infective endocarditis organism: bacterial (3) Vegetation of heart valve Code(s): I33.0 - ACUTE AND SUBACUTE INFECTIVE ENDOCARDITIS Status: Acute (4) Chronic anemia Code(s): D64.9 - ANEMIA, UNSPECIFIED Status: Chronic (5) Cirrhosis of liver Code(s): K74.60 - UNSPECIFIED CIRRHOSIS OF LIVER Status: Chronic Qualifiers: Hepatic cirrhosis type: alcoholic cirrhosis Ascites presence: without ascites Qualified Code(s): K70.30 - Alcoholic cirrhosis of liver without ascites (6) Leg pain Status: Acute Qualifiers: Laterality: bilateral Qualified Code(s): M79.604 - Pain in right leg; M79.605 - Pain in left leg - Plan * Bacteremia/endocarditis secondary to enterococcus * Appreciate ID consult - abx through end of May. * Rocephin 2 grams Q12h + ampicillin 2 grams Q4h with weekly cbc and cmp - filled out med rec and CM working on this and where it will occur * RODNEY with CKD resolved - Dr. Miles signed off * * Anemia - chronic - appreciate GI consult, no work-up intended as no signs of active bleeding. * s/p 1 unit prbc 2 days ago * blood draws changed to every other day * Parox A Fib - not a candidate for anti-coagulation * * Foot/leg complaints - suspect peripheral neuropathy which may be related ot the hx of significant alcohol use * Folate level low - supplement started * gabapentin increased to TID * add prn low dose tramadol * add muscle cream for prn use * dvt prophy - ambulatory * gi prophy - not indicated * code status full * * ready for discharge when placement is arranged for patient to receive antibiotics through the group home facility
[2019-05-21] MEDS: Atorvastatin Calcium 40 MG TAB PO SCH (20:20)
[2019-05-22] MEDS: Ampicillin 2 GM in Sodium Chloride 0.9% 100 ML IVPB SCH ×6 (00:37→20:50)
[2019-05-22 05:32] LABS: #Eosinphils 0.3 thou/uL (0.0-0.7); #Lymphocytes 1.3 thou/uL (1.20-3.40); #Monocytes 0.6 thou/uL (0.11-0.59); #Neutrophils 5.3 thou/uL (1.40-6.50); %Eosinophils 3.9 % (0.0-10.0); %Lymphocytes 17.7 % (21.0-51.0); %Monocytes 7.5 % (0.0-10.0); %Neutrophils 70.9 % (42.0-75.0); Hemoglobin 7.6 g/dL (14.0-18.0); Mean Corpuscular HGB CONC 31.2 g/dL (32.0-36.0); Mean Corpuscular Hemoglobin 28.7 pg (27.0-31.0); Mean Corpuscular Volume 92.1 fL (78.0-98.0); Mean Platelet Volume 9.4 fL (7.4-10.4); Platelet Count 163 thou/uL (130-400); RBC Distribution Width 20.6 % (11.5-14.5); Red Blood Cell (RBC) Count 2.63 mill/uL (4.70-6.10); White Blood Cell (WBC) Count 7.5 thou/uL (4.8-10.8)
[2019-05-22 05:50] LABS: Anion Gap 11 mmol/L (10-20); BUN (Urea Nitrogen) 32 mg/dL (8.4-25.7); Calc. Creatinine Clearance 54 mL/min (70-130); Calcium 9.2 mg/dL (7.8-10.44); Carbon Dioxide 20 mmol/L (23-31); Chloride 113 mmol/L (98-107); Estimated GFR-MDRD 58; Glucose 104 mg/dL (83-110); Potassium 4.3 mmol/L (3.5-5.1); Sodium 140 mmol/L (136-145)
[2019-05-22] MEDS: Finasteride 5 MG TAB PO SCH (09:33)
[2019-05-22] MEDS: Gabapentin 300 MG CAP PO SCH ×3 (09:34→20:49)
[2019-05-22] MEDS: cefTRIAXone\\ROCEPHIN 2 GM in Sodium Chloride 0.9% 100 ML IVPB SCH ×2 (09:34→20:50)
[2019-05-22] MEDS: Carvedilol 3.125 MG TAB PO SCH ×2 (09:34→20:49)
[2019-05-22] MEDS: Folic Acid 1 MG TAB PO SCH (09:34)
--- NOTE | 2019-05-22 12:42 | PDOC.PN ---
- Subjective Encounter Start Date: 05/22/19 (f/u endocarditis) Encounter Start Time: 12:39 Subjective: Pt reports feet feel a little better today. Denies any new complaints. -: Was refusing lactulose, but then agreed to take it. - Objective Resuscitation Status - Order Detail: 05/07/19 14:32 Resuscitation Status Routine Resuscitation Status: FULL: Full Resuscitation Vital Signs & Weight: Vital Signs (12 hours) Temp Pulse Resp BP Pulse Ox 05/22/19 08:00 98.2 F 66 20 133/58 L 93 L Weight Admit Weight 181 lb 8 oz Weight 171 lb 15.369 oz I&O: 05/21/19 05/22/19 05/23/19 06:59 06:59 06:59 Intake Total 1600 2310 Output Total 1750 Balance -150 2310 Result Diagrams: 05/22/19 05:08 05/22/19 05:08 Phys Exam - Physical Examination Constitutional: NAD Respiratory: no wheezing, no rales, no rhonchi, clear to auscultation bilateral Cardiovascular: RRR, no significant murmur Gastrointestinal: soft, non-tender, no distention, positive bowel sounds Musculoskeletal: no edema 1+ PT pulse left foot, 2+ PT pulse right foot, bilateral feet warm Neurological: non-focal, moves all 4 limbs Psychiatric: normal affect Dx/Plan (1) RODNEY (acute kidney injury) Code(s): N17.9 - ACUTE KIDNEY FAILURE, UNSPECIFIED Status: Resolved (2) Infective endocarditis Code(s): I33.0 - ACUTE AND SUBACUTE INFECTIVE ENDOCARDITIS Status: Acute Qualifiers: Infective endocarditis organism: bacterial (3) Vegetation of heart valve Code(s): I33.0 - ACUTE AND SUBACUTE INFECTIVE ENDOCARDITIS Status: Acute (4) Chronic anemia Code(s): D64.9 - ANEMIA, UNSPECIFIED Status: Chronic (5) Cirrhosis of liver Code(s): K74.60 - UNSPECIFIED CIRRHOSIS OF LIVER Status: Chronic Qualifiers: Hepatic cirrhosis type: alcoholic cirrhosis Ascites presence: without ascites Qualified Code(s): K70.30 - Alcoholic cirrhosis of liver without ascites (6) Leg pain Status: Acute Qualifiers: Laterality: bilateral Qualified Code(s): M79.604 - Pain in right leg; M79.605 - Pain in left leg - Plan * * Bacteremia/endocarditis secondary to enterococcus * Appreciate ID consult - abx through end of May. * Rocephin 2 grams Q12h + ampicillin 2 grams Q4h with weekly cbc and cmp - filled out med rec and CM working on this and where it will occur * RODNEY with CKD resolved - Dr. Miles signed off * * Anemia - chronic - appreciate GI consult, no work-up intended as no signs of active bleeding. * s/p 1 unit prbc here * todays blood count improved- change to weekly CBC and CMP for monitoring with antibiotics * Parox A Fib - not a candidate for anti-coagulation * * Lactulose changed to once daily as pt was refusing the evening dose * * Foot/leg complaints - suspect peripheral neuropathy which may be related ot the hx of significant alcohol use * Folate level low - supplement started * gabapentin increased to TID * add prn low dose tramadol * add muscle cream for prn use * dvt prophy - ambulatory * gi prophy - not indicated * code status full * * ready for discharge when placement is arranged for patient to receive antibiotics through the senior care facility.
[2019-05-22] MEDS: Atorvastatin Calcium 40 MG TAB PO SCH (20:50)
[2019-05-23] MEDS: Ampicillin 2 GM in Sodium Chloride 0.9% 100 ML IVPB SCH ×5 (00:39→16:17)
[2019-05-23] MEDS: Gabapentin 300 MG CAP PO SCH (07:48)
[2019-05-23] MEDS: Folic Acid 1 MG TAB PO SCH (07:48)
[2019-05-23] MEDS: Carvedilol 3.125 MG TAB PO SCH (07:48)
[2019-05-23] MEDS: Finasteride 5 MG TAB PO SCH (07:48)
[2019-05-23] MEDS: cefTRIAXone\\ROCEPHIN 2 GM in Sodium Chloride 0.9% 100 ML IVPB SCH (08:33)
[2019-05-23] MEDS ORDERED: Gabapentin 100 MG CAP PO SCH (15:00)
[2019-05-23 17:00] VITALS: BP 139/68; TEMP 97.4
--- NOTE | 2019-05-23 22:36 | DIS ---
DATE OF ADMISSION: 05/07/2019 DATE OF DISCHARGE: 05/23/2019 CONSULTANTS: 1. Nephrology, Dr. Miles. 2. Infectious disease, Dr. Swan. 3. Cardiology, Dr. Ruano. 4. GI, Dr. Vaughn. MEDICATIONS: Reconciled at discharge and are: 1. Ampicillin 2 g IV q.4 hours through 06/22. 2. Ceftriaxone 2 g IV q.12 hours through 06/22. 3. Coreg 3.125 mg b.i.d. 4. Folic acid 1 mg daily. 5. Gabapentin 300 mg t.i.d. 6. Senokot-S 2 tablets twice daily as needed. 7. Omeprazole 20 mg daily. 8. Lactulose 30 mL of 10 g per 15 mL twice daily. 9. Finasteride 1 tab daily. 10. Ferrous sulfate 325 mg t.i.d. 11. Aspirin 1 tablet daily. 12. Atorvastatin 80 mg every evening. DISCHARGE DISPOSITION: [facility] as arranged by the alf facility. FINAL DIAGNOSES: 1. 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 2. Acute kidney injury, resolved in the context of chronic kidney disease stage 2. 3. Anemia with history of cirrhosis, stable. Status post 1 unit blood transfusion. 4. Paroxysmal atrial fibrillation, not a candidate for anticoagulation. 5. Acute on chronic diastolic heart failure. 6. Chronic leg pain. 7. Hypoalbuminemia. 8. 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 SECONDARY DIAGNOSES: 1. Dyslipidemia. 2. Hypertension. 3. Severe aortic regurgitation. 4. Moderate protein calorie malnutrition. 5. Mild mitral regurgitation. 6. Nonobstructing renal calculi and bilateral renal cysts. 7. Hypokalemia, resolved. 8. Hyponatremia, resolved. 9. BPH. HISTORY OF PRESENT ILLNESS: Mr. Mckeon is an 78-year-old incarcerated male who presented to the emergency room with a complaint of shortness of breath. He denies any fevers or chills. Does have a chronic cough. The patient was admitted for a diagnosis of acute congestive heart failure with volume overload. HOSPITAL COURSE: The patient was diuresed during this hospitalization for concern of heart failure. He had blood cultures drawn on 06/08, which showed positive for enterococcus and vagococcus, sensitive to the antibiotics tested. Infectious Disease was consulted and initially, the patient was on ampicillin and gentamicin. Because of an acute kidney injury, the gentamicin was changed over to Rocephin with a plan for continuing all of these through the end of May. Antibiotic selection was based on recommendations from Dr. Swan. The patient did undergo echocardiogram which shows a small vegetation on the right coronary cusp as well as moderate to severe aortic regurgitation. He does have a pacemaker in place. It is not thought that the pacemaker wires are seeded; however, the patient will need close followup with Infectious Disease. He was followed by Dr. Ruano of Cardiology who further evaluated with a transesophageal echocardiogram, which showed suggestion of vegetation with a 0.5 cm mass on the aortic valve leaflets. Nephrology, Dr. Miles was consulted due to an acute kidney injury. The patient has responded well to gentle diuresis, and his antibiotics were changed. His renal function has returned to normal, and Dr. Miles has signed off. The patient has been chronically anemic while here with a hemoglobin on presentation of 8.3. He has a history of cirrhosis and is managed on lactulose however, and has normal platelets. His hemoglobin reached a low of 6.9 in this facility, and he was transfused 1 unit of packed red blood cells. His hemoglobin increased to 7.6 at the last check yesterday. GI, Dr. Vaughn was consulted due to the chronic anemia and a report of a dark tarry stool during this hospitalization. The patient was monitored. No blood was found in his stool, and there was no indication for endoscopy. He was transfused once for hemoglobin of 6.9, and his hemoglobin since then has remained stable and above 7. The patient has been complaining of leg pain over the past week. He does have present pulses, asymmetric pulses and warm feet. He has a long history of alcohol abuse, and his symptoms are consistent with a neuropathy. His vitamin B12 and folic acid levels were checked and he is deficient on folate, which is currently being replaced. He was started on gabapentin and this was titrated up here to help address the symptoms, as well as a topical muscle cream and some low-dose tramadol. I recommend that he follow up within the [facility] system for monitoring and treatment of neuropathy. The patient is overall improved, and does meet criteria for discharge back to the facility that can provide antibiotics through the end of May. The patient has remained hemodynamically normal during this hospitalization. Followup needed weekly CBC and CMP to be evaluated by the [facility] physician. Follow up with Infectious Disease prior to the end of antibiotics. Follow up with director search marketing strategies regarding aortic valve vegetation and endocarditis. PHYSICAL EXAMINATION: VITAL SIGNS: On day of discharge, blood pressure 123/47, pulse 68, respirations 16, sats 97% on room air, temp 97.5. GENERAL: Awake, alert, responsive, in no apparent distress. Able to speak in regular sentences. LUNGS: Clear to auscultation bilateral. HEART: Normal S1 and S2. Regular rate and rhythm. No significant murmur. ABDOMEN: Soft with present bowel sounds. EXTREMITIES: No edema. Pulses; the patient does have 2+ right posterior tibialis and 1+ left posterior tibialis pulses. ZACARIAS FINDINGS AND TEST RESULTS: CBC on 05/22; 7.5, 7.6, 24.3, 163. Renal panel; 140, 4.3, 113, 20, 32, 1.2, 104 with a peak creatinine of 1.7. Folate 4.1, within normal range of 7 to 31.4. Vitamin B12 16. His INR was 1.3. Ferritin 312, iron 70, TIBC 220. LFTs; T bilirubin 0.5, AST 41, ALT 22, alkaline phosphatase 122, total protein 7.3, albumin 2.6. BNP 962. Blood cultures show Enterococcus faecalis and Vagococcus fluvialis. Enterococcus tested and sensitive to all antibiotics tested. Urine culture negative. Blood cultures on 05/19, no growth so far. The patient was transfused 1 unit of packed red blood cells. Renal ultrasound on 05/16, shows bilateral nonobstructing renal calcifications, bilateral renal cysts. Echocardiogram on 05/07, shows an EF of 55% to 60%, pacer wire in the right ventricle, moderate MR, small vegetation on the right coronary cusp, moderate to severe AR, moderate tricuspid regurgitation and severely elevated pulmonary artery pressure. CT dissection protocol on 05/07, shows likely cirrhosis with splenomegaly. Nonobstructing bilateral renal calculi, nonspecific cystic lesion in the spleen which may be residual sequela from trauma, bilateral renal cysts, small pericardial effusion, and bilateral pleural effusions. Chest x-ray on 05/07, cardiomegaly. DIET: Heart healthy. ACTIVITY: Per the facility routine. The patient does have a PICC line in place to receive antibiotics. CODE STATUS: Full. Reviewed this hospitalization, the medications with the patient who demonstrates understanding. No further needs at time of discharge. TIME SPENT: Total time coordinating discharge is 45 minutes. Job ID: [id number]
== END 2019-05-23 17:32 | DRG 280 ==
LOC: ERS 06:49 → OBSVTOIN 12:15 → 2SW 12:15 → 2NO 05-08 14:53 → T4-B 05-18 17:57
PROVIDERS: ADMIT Internal Medicine; ATTEND Internal Medicine
PROC: B24BZZ4 Ultrasonography of Heart with Aorta, Transesophageal (ICD-10-PCS; 2019-05-10)
PROC: 02HV33Z Insertion of Infusion Device into Superior Vena Cava, Percutaneous Approach (ICD-10-PCS; principal; 2019-05-12)
PROC: B5181ZA Fluoroscopy of Superior Vena Cava using Low Osmolar Contrast, Guidance (ICD-10-PCS; 2019-05-12)
PROC: B548ZZA Ultrasonography of Superior Vena Cava, Guidance (ICD-10-PCS; 2019-05-12)
PROC: 30233N1 Transfusion of Nonautologous Red Blood Cells into Peripheral Vein, Percutaneous Approach (ICD-10-PCS; 2019-05-19)
DX: I33.0 Acute and subacute infective endocarditis (principal); I50.33 Acute on chronic diastolic (congestive) heart failure; I21.A1 Myocardial infarction type 2; N17.9 Acute kidney failure, unspecified; I13.0 Hypertensive heart and chronic kidney disease with heart failure and stage 1 through stage 4 chronic kidney disease, or unspecified chronic kidney disease; E44.0 Moderate protein-calorie malnutrition; E87.1 Hypo-osmolality and hyponatremia; K92.2 Gastrointestinal hemorrhage, unspecified; D68.9 Coagulation defect, unspecified; I48.0 Paroxysmal atrial fibrillation; I27.20 Pulmonary hypertension, unspecified; I08.0 Rheumatic disorders of both mitral and aortic valves; B95.2 Enterococcus as the cause of diseases classified elsewhere; N18.2 Chronic kidney disease, stage 2 (mild); K70.30 Alcoholic cirrhosis of liver without ascites; N20.0 Calculus of kidney; E87.6 Hypokalemia; R79.89 Other specified abnormal findings of blood chemistry; D50.0 Iron deficiency anemia secondary to blood loss (chronic); I87.2 Venous insufficiency (chronic) (peripheral); D63.1 Anemia in chronic kidney disease; G62.9 Polyneuropathy, unspecified; G89.29 Other chronic pain; E88.09 Other disorders of plasma-protein metabolism, not elsewhere classified; R16.1 Splenomegaly, not elsewhere classified; N40.0 Benign prostatic hyperplasia without lower urinary tract symptoms; Z98.49 Cataract extraction status, unspecified eye; Z79.82 Long term (current) use of aspirin; Z88.8 Allergy status to other drugs, medicaments and biological substances; Z88.0 Allergy status to penicillin; Z95.0 Presence of cardiac pacemaker; Z68.22 Body mass index [BMI] 22.0-22.9, adult
CPT/HCPCS: 36415; 36416; 36430; 36569; 71045; 71275; 76770; 80048; 80053; 80074; 80170; 81001; 82553; 82607; 82728; 82746; 83540; 83550; 83735; 83880; 84443; 84484; 85025; 85046; 85379; 85610; 85730; 86850; 86900; 86901; 87040; 87077; 87086; 87149; 87186; 93005; 93306; 93312; 93798; C1751; C9113; J0290; J0696; J1580; J1644; J1650; J1940; J2543; J2704; J3370; J3490; J7050; P9016; Q9966